=== PATIENT | female | born 1940 | race Hispanic/Latino ===

== ENCOUNTER 2018-02-16 18:23 | Inpatient (IN) | payer MEDICARE, OTHER ==
[2018-02-16 18:23] VITALS: BMI 25.7
[2018-02-16] MEDS ORDERED: Sodium Chloride 0.9% 500 ML IV ONE ×6 (19:35→22:42)
[2018-02-16 19:44] LABS: BASO # 0.1 K/uL (0.0-0.2); BASO % 0.4 % (0.0-2.0); EOS # 0.1 K/uL (0.0-0.7); EOS % 0.3 % (0.0-4.0); HEMOGLOBIN 9.7 g/dL (11.0-16.0); LYMPH # 1.6 K/uL (1.0-4.3); LYMPH % 7.6 % (20.0-40.0); MEAN CELL VOLUME 75.6 fL (81.0-99.0); MEAN CORPUSCULAR HEMOGLOBIN 22.8 pg (27.0-31.0); MEAN CORPUSCULAR HGB CONC 30.2 g/dL (33.0-37.0); MEAN PLATELET VOLUME 7.9 fL (7.2-11.7); MONO # 1.3 K/uL (0.0-0.8); MONO % 6.5 % (0.0-10.0); NEUT # 17.8 K/uL (1.8-7.0); NEUT % 85.2 % (50.0-75.0); PLATELET COUNT 658 K/uL (130-400); RBC 4.24 Mil/uL (3.80-5.20); RED CELL DISTRIBUTION WIDTH 21.3 % (11.5-14.5); WHITE BLOOD COUNT 20.8 K/uL (4.8-10.8)
[2018-02-16 19:55] LABS: INR 1.3; PROTHROMBIN TIME 13.8 SECONDS (9.7-12.2)
[2018-02-16 19:57] LABS: ALB/GLOB RATIO 0.9 (1.0-2.1); ALBUMIN 3.7 g/dL (3.5-5.0); ALT/SGPT 18 U/L (9-52); AST/SGOT 36 U/L (14-36); BLOOD UREA NITROGEN 11 mg/dL (7-17); CALCIUM 9.6 mg/dl (8.6-10.4); GFR NON-AFRICAN AMERICAN 54
[2018-02-16 20:05] LABS: CK-MB 5.05 ng/mL (0.0-3.38)
--- NOTE | 2018-02-16 21:00 | C.PDOC ---
History Of Present Illness Patient CRISTINA for evaluation, states she fell in her apartment 5 days ago when she got up from the toilet. Patient reports that her legs were very weak, and that she has been laying on the floor of her apartment, crawling around trying to get to the phone. She states she fell onto her left side, but denies head injury, LOC, palpitations, chest pain, SOB, dizziness, visual changes, facial droop, sensory changes, visual changes, seizures. PMhx of HTN, depression, seizure disorder Time Seen by Provider: 02/16/18 19:27 Chief Complaint (Nursing): Weakness/Neurological Deficit History Per: Patient, EMS History/Exam Limitations: no limitations Onset/Duration Of Symptoms: Days (5) Seizure Or Post-ictal Symptoms: None Fall Associated With With Symptoms: Yes Severity: Moderate Past Medical History Reviewed: Historical Data, Nursing Documentation, Vital Signs Vital Signs: Last Vital Signs Temp 98.1 F 02/16/18 19:07 Pulse 116 H 02/16/18 18:53 Resp 20 02/16/18 18:53 BP 163/82 H 02/16/18 18:53 Pulse Ox 100 02/16/18 18:53 - Medical History PMH: Depression, HTN, Seizures Surgical History: Cholecystectomy - [facility] Procedures INJECT/INFUSE ELECTROLYT (07/25/14) Family History: States: Other Other Family History: noncontributory - Social History Hx Alcohol Use: No Hx Substance Use: No Review Of Systems Constitutional: Positive for: Weakness (generalized ). Negative for: Fever, Chills Cardiovascular: Negative for: Chest Pain, Palpitations Respiratory: Negative for: Cough, Shortness of Breath Gastrointestinal: Negative for: Nausea, Vomiting, Abdominal Pain, Diarrhea Musculoskeletal: Negative for: Neck Pain, Back Pain, Leg Pain Skin: Negative for: Rash Neurological: Positive for: Weakness (B/L leg weakness). Negative for: Numbness, Incoordination, Confusion, Seizures, Altered Mental Status, Headache, Dizziness Physical Exam - Physical Exam Appears: Non-toxic, Other (thin and frail appearing) Skin: Other (scattered ecchymsoes B/L upper and loiwer extremities ) Head: Atraumatic, Normacephalic Eye(s): bilateral: Normal Inspection, PERRL, EOMI Oral Mucosa: Dry Neck: Normal, Normal ROM, No Midline Cervical Tenderness, No Paracervical Tenderness, No Step Off Deformity, Supple Cardiovascular: Rhythm Regular (tachycardic ) Respiratory: Normal Breath Sounds, No Rales, No Rhonchi, No Wheezing Gastrointestinal/Abdominal: Normal Exam, Bowel Sounds, Soft, No Tenderness Extremity: Normal ROM, No Deformity, No Swelling Extremity: Bilateral: Normal ROM, Other (B/L feet cool to touch but with pedal pulses) Pulses: Left Dorsalis Pedis: Normal, Right Dorsalis Pedis: Normal Neurological/Psych: Oriented x3, Normal Speech, Normal Cognition, Normal Cranial Nerves, No Cerebellar Signs, Normal Motor, Normal Sensation ED Course And Treatment - Laboratory Results Result Diagrams: 02/16/18 19:41 02/16/18 19:41 O2 Sat by Pulse Oximetry: 100 (RA) Pulse Ox Interpretation: Normal Progress Note: Blood work, EKG, CT head, UA, CXR and hip/pelvis Xrays ordered and reviewed. Patient given IV NS boluses, IV rocephin. 11:10PM- Spoke with PMD Dr. Don, he is currently out of town, requests admission to medicine transportation maintenance operator. - Physician Consult Information Physician Contacted: Ethan Galeas Jr. Outcome Of Conversation: Discussed patient with medicine transportation maintenance operator, agrees with admission for leukocytosis, uti, dehydration, fall, sinus tachycardia with PVCs. Disposition - Disposition Forms: [facility] Experience (Chinese)
[2018-02-16 21:33] LABS: LYMPHOCYTE 8 % (20-40); MONOCYTE 8 % (0-10); NEUTROPHIL 84 % (50-75); TOTAL CELLS COUNTED 100
[2018-02-16 21:34] LABS: PLATELET ESTIMATE INCREASED (NORMAL)
[2018-02-16 21:35] LABS: ANISOCYTOSIS SLIGHT; HYPOCHROMIC SLIGHT; MICROCYTOSIS SLIGHT; POIKILOCYTOSIS SLIGHT
[2018-02-16 21:47] LABS: SQUAMOUS EPITHIAL 8 /hpf (0-5); URINE BACTERIA OCC (<OCC); URINE BILIRUBIN NEGATIVE (NEGATIVE); URINE BLOOD 2+ (NEGATIVE); URINE CLARITY Hazy (Clear); URINE COLOR Yellow (YELLOW); URINE GLUCOSE (UA) NORMAL (Normal); URINE LEUKOCYTE ESTERASE 1+ Leu/uL (Negative); URINE PROTEIN 1+ mg/dL (NEGATIVE); URINE UROBILINOGEN NORMAL mg/dL (0.2-1.0)
[2018-02-16] MEDS ORDERED: cefTRIAXone IV 1 gm in Dextros 50 ML IV STA (22:02)
[2018-02-16] MEDS ORDERED: cefTRIAXone 1 gm 1 GM/100 ML BAG IVPB ONE (22:12)
[2018-02-17 00:06] LABS: ACETAMINOPHEN < 10.0 ug/mL (10.0-30.0); SALICYLATE < 1.0 [, mg/dL 1]
[2018-02-17 00:35] LABS: VENOUS BLOOD GAS BASE EXCESS -5.9 mmol/L (0.0-2.0); VENOUS BLOOD GAS PCO2 41 mmHg (40-60); VENOUS BLOOD GAS PO2 19 mm/Hg (30-55)
--- NOTE | 2018-02-17 00:52 | CP.PCM.HP ---
History of Present Illness - History of Present Illness History of Present Illness: cc: "I fell" Ms. Duron is a 78 year old female PMH hypertension, depression, seizure, hyperlipidemia presents to [facility] s/p fall 5 days ago. Per patient, her legs gave out and she fell to the floor on her left hip. She did not hit her head nor have loss of consciousness. However, she was unable to regain control of her legs. She spent the subsequent 5 days crawling on the floor to get to the phone and call 911. During that time, she did not eat. She was both incontinent and allowed herself to urinate since she was unable to get to a toilet. She denies having a BM during that time. Per EMS, her home was filthy, and the patient admits that she does not believe she can live alone any longer. Denies chest pain, abdominal pain, hip pain, shortness of breath, headache. Admits numbness and tingling at her feet. Patient states she has chronic back pain that has only worsened after the fall. She tells nursing staff that she takes Percocet, however is unable to remember how many times a day she takes it. PMD: Dr. Don PMH: HTN, depression, seizure, HLD Med: Simvastatin, unknown home meds All: Sulfa SxHx: Denies SocHx: 1/2 PPD smoker, 2-3 beers daily, denies ever illicit drugs. 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 Lives alone without hospice home health aide or any other visitors. Walks with cane. FamHx: Father - stroke, Mother - depression Full Code Present on Admission - Present on Admission Any Indicators Present on Admission: No Review of Systems - Constitutional Constitutional: Fatigue, Frequent Falls, Malaise, Weakness. absent: Excessive Sweating, Fever - EENT Eyes: absent: Blurred Vision, Diplopia Ears: absent: Tinnitus, Dizziness Nose/Mouth/Throat: absent: Nasal Discharge, Dysphagia, Odynophagia, Sore Throat - Cardiovascular Cardiovascular: absent: Chest Pain, Chest Pain with Activity, Dyspnea on Exertion, Irregular Heart Rhythm, Lightheadedness - Respiratory Respiratory: absent: Cough, Hemoptysis, Dyspnea on Exertion - Gastrointestinal Gastrointestinal: Constipation. absent: Bloating, Diarrhea, Dyspepsia, Heartburn, Nausea, Odynophagia, Vomiting - Genitourinary Genitourinary: Urinary Incontinence, Urinary Frequency. absent: Difficulty Urinating - Musculoskeletal Musculoskeletal: Back Pain, Muscle Weakness. absent: Myalgias, Numbness, Stiffness, Tingling - Integumentary Integumentary: Unusual Bruising, Wounds. absent: Bleeding Lesions, Dry Skin, Sores - Neurological Neurological: Frequent Falls, Lack of Coordination. absent: Abnormal Speech, Disequilibrium, Dizziness, Headaches, Syncope - Psychiatric Psychiatric: absent: Anxiety, Confusion, Depression, Hopelessness - Endocrine Endocrine: Fatigue. absent: Palpitations - Hematologic/Lymphatic Hematologic: Easy Bruising Past Patient History - Tetanus Immunizations Tetanus Immunization: Unknown - Past Social History Smoking Status: Heavy Smoker > 10 Cigarettes Daily Alcohol: > 2 Drinks/Day Drugs: Denies - CARDIAC Hx Hypertension: Yes - NEUROLOGICAL Hx Seizures: Yes - PSYCHIATRIC Hx Depression: Yes Hx Substance Use: No - SURGICAL HISTORY Hx Cholecystectomy: Yes Meds Allergies/Adverse Reactions: Allergies Allergy/AdvReac Type Severity Reaction Status Date / Time Sulfa (Sulfonamide Allergy Verified 02/16/18 18:36 Antibiotics) Physical Exam - Constitutional Appears: Non-toxic, No Acute Distress - Head Exam Head Exam: ATRAUMATIC, NORMOCEPHALIC - Eye Exam Eye Exam: EOMI, Normal appearance Pupil Exam: NORMAL ACCOMODATION - ENT Exam ENT Exam: Mucous Membranes Moist - Respiratory Exam Respiratory Exam: Clear to Auscultation Bilateral, NORMAL BREATHING PATTERN. absent: Rales, Rhonchi, Wheezes - Cardiovascular Exam Cardiovascular Exam: Irregular Rhythm, +S1, +S2. absent: Gallop, Rubs, Systolic Murmur Additional comments: irregularly irregular - GI/Abdominal Exam GI & Abdominal Exam: Normal Bowel Sounds, Soft. absent: Distended, Firm, Guarding, Tenderness - Exam Additional comments: incontinent - Extremities Exam Extremities exam: Positive for: normal capillary refill, pedal pulses present. Negative for: calf tenderness, pedal edema, tenderness - Back Exam Back exam: absent: CVA tenderness (L), CVA tenderness (R) - Neurological Exam Neurological exam: Alert, CN II-XII Intact, Oriented x3, Reflexes Normal - Psychiatric Exam Psychiatric exam: Normal Affect, Normal Mood - Skin Skin Exam: Normal Color, Warm Results - Vital Signs Recent Vital Signs: Last Vital Signs Temp 98.1 F 02/17/18 00:12 Pulse 110 H 02/17/18 00:12 Resp 18 02/17/18 00:12 BP 148/47 L 02/17/18 00:12 Pulse Ox 96 02/17/18 00:12 - Labs Result Diagrams: 02/16/18 19:41 02/16/18 19:41 Labs: Laboratory Results - last 24 hr 02/16/18 02/16/18 02/16/18 18:56 19:41 19:41 WBC 20.8 H RBC 4.24 Hgb 9.7 L Hct 32.0 L MCV 75.6 L MCH 22.8 L MCHC 30.2 L RDW 21.3 H Plt Count 658 H MPV 7.9 Neut % (Auto) 85.2 H Lymph % (Auto) 7.6 L [place] % (Auto) 6.5 Eos % (Auto) 0.3 Baso % (Auto) 0.4 Neut # (Auto) 17.8 H Lymph # (Auto) 1.6 [place] # (Auto) 1.3 H Eos # (Auto) 0.1 Baso # (Auto) 0.1 Neutrophils % (Manual) 84 H Lymphocytes % (Manual) 8 L Monocytes % (Manual) 8 Platelet Estimate Increased H Hypochromasia (manual) Slight Poikilocytosis (manual Slight Anisocytosis (manual) Slight Microcytosis (manual) Slight PT 13.8 H INR 1.3 APTT 37 H pO2 VBG pH VBG pCO2 VBG HCO3 VBG Total CO2 VBG O2 Sat (Calc) VBG Base Excess VBG Potassium Glucose Lactate Sodium Potassium Chloride Carbon Dioxide Anion Gap BUN Creatinine Est GFR ( Amer) Est GFR (Non-Af Amer) POC Glucose (mg/dL) 73 Random Glucose Calcium Total Bilirubin AST ALT Alkaline Phosphatase Total Creatine Kinase CK-MB (Mass) Total Protein Albumin Globulin Albumin/Globulin Ratio Venous Blood Potassium Urine Color Urine Clarity Urine pH Ur Specific Flushing Urine Protein Urine Glucose (UA) Urine Ketones Urine Blood Urine Nitrate Urine Bilirubin Urine Urobilinogen Ur Leukocyte Esterase Urine WBC (Auto) Urine RBC (Auto) Ur Squamous Epith Cells Urine Bacteria Hyaline Casts Salicylates Acetaminophen 02/16/18 02/16/18 02/16/18 19:41 21:36 23:52 WBC RBC Hgb Hct MCV MCH MCHC RDW Plt Count MPV Neut % (Auto) Lymph % (Auto) [place] % (Auto) Eos % (Auto) Baso % (Auto) Neut # (Auto) Lymph # (Auto) [place] # (Auto) Eos # (Auto) Baso # (Auto) Neutrophils % (Manual) Lymphocytes % (Manual) Monocytes % (Manual) Platelet Estimate Hypochromasia (manual) Poikilocytosis (manual Anisocytosis (manual) Microcytosis (manual) PT INR APTT pO2 VBG pH VBG pCO2 VBG HCO3 VBG Total CO2 VBG O2 Sat (Calc) VBG Base Excess VBG Potassium Glucose Lactate Sodium 142 Potassium 3.8 Chloride 100 Carbon Dioxide 21 L Anion Gap 25 H BUN 11 Creatinine 1.0 Est GFR ( Amer) > 60 Est GFR (Non-Af Amer) 54 POC Glucose (mg/dL) Random Glucose 113 H Calcium 9.6 Total Bilirubin 0.5 AST 36 ALT 18 Alkaline Phosphatase 112 Total Creatine Kinase 90 CK-MB (Mass) 5.05 H Total Protein 7.8 Albumin 3.7 Globulin 4.1 H Albumin/Globulin Ratio 0.9 L Venous Blood Potassium Urine Color Yellow Urine Clarity Hazy Urine pH 6.0 Ur Specific [place] 1.012 Urine Protein 1+ H Urine Glucose (UA) Normal Urine Ketones 2+ H Urine Blood 2+ H Urine Nitrate Positive H Urine Bilirubin Negative Urine Urobilinogen Normal Ur Leukocyte Esterase 1+ H Urine WBC (Auto) 29 H Urine RBC (Auto) 12 H Ur Squamous Epith Cells 8 H Urine Bacteria Occ H Hyaline Casts 6-10 H Salicylates < 1.0 Acetaminophen < 10.0 L 02/17/18 00:31 WBC RBC Hgb Hct MCV MCH MCHC RDW Plt Count MPV Neut % (Auto) Lymph % (Auto) [place] % (Auto) Eos % (Auto) Baso % (Auto) Neut # (Auto) Lymph # (Auto) [place] # (Auto) Eos # (Auto) Baso # (Auto) Neutrophils % (Manual) Lymphocytes % (Manual) Monocytes % (Manual) Platelet Estimate Hypochromasia (manual) Poikilocytosis (manual Anisocytosis (manual) Microcytosis (manual) PT INR APTT pO2 19 L VBG pH 7.30 L VBG pCO2 41 VBG HCO3 18.3 VBG Total CO2 21.5 L VBG O2 Sat (Calc) 19.0 L VBG Base Excess -5.9 L VBG Potassium 3.9 Glucose 82 Lactate 1.2 Sodium 141.0 Potassium Chloride 104.0 Carbon Dioxide Anion Gap BUN Creatinine Est GFR ( Amer) Est GFR (Non-Af Amer) POC Glucose (mg/dL) Random Glucose Calcium Total Bilirubin AST ALT Alkaline Phosphatase Total Creatine Kinase CK-MB (Mass) Total Protein Albumin Globulin Albumin/Globulin Ratio Venous Blood Potassium 3.9 Urine Color Urine Clarity Urine pH Ur Specific [place] Urine Protein Urine Glucose (UA) Urine Ketones Urine Blood Urine Nitrate Urine Bilirubin Urine Urobilinogen Ur Leukocyte Esterase Urine WBC (Auto) Urine RBC (Auto) Ur Squamous Epith Cells Urine Bacteria Hyaline Casts Salicylates Acetaminophen Assessment & Plan - Assessment and Plan (Free Text) Assessment: 79yo F PMH HTN, seixure, depression admitted s/p fall and UTI Plan: s/p Fall - CXR (02/16): pending read - XR Hip/Pelvis: pending read - CT Head w/o contrast (02/16): pending read - EKG x2 sinus tachy @120 with PVCs. - On exam, afib @ 120 with PVCs - PT/OT Leukocytosis - likely secondary UTI - WBC 20.8 on admission - VBG: pH 7.30, lactate 1.2 - Rocephin 1 gm IVPB daily (started in ED 02/16) - UA: 1+ protein, 2+ ketone, 2+ blood, positive nitrate, 1+ LE, 29 WBC, 6-10 hyaline casts - f/u urine Cx - f/u blood Cx Paroxyosmal Afib - 09/29/16 ECHO: LVEF 70%, mitral regurg - Patient is aSx - Monitor on tele Tobacco Use - Nicotine patch 7mg/24hr TD daily - patient is not interested in quitting at this time Multiple bruises/hematomas - PT/PTT elevated: 13.8/37, INR 1.3 - Wound Care consulted PPx - DVT: Lovenox 40mg sc daily, SCDs - GI: not indicated - Diet: HHD Dispo: CM and SW consulted for dispo. Patient will require home care. We will also need to call Dr. Don's office to confirm home medications. d/w Dr. Galeas. All medical management per Dr. Gudelia Menjivar PGY-1 - Date & Time Date: 02/17/18 Time: 00:30
--- NOTE | 2018-02-17 07:26 | CT ---
Date of service: 02/16/2018 PROCEDURE: CT HEAD WITHOUT CONTRAST. HISTORY: fall COMPARISON: None available. TECHNIQUE: Axial computed tomography images were obtained through the head/brain without intravenous contrast. Radiation dose: Total exam DLP = 1410.23 mGy-cm. This CT exam was performed using one or more of the following dose reduction techniques: Automated exposure control, adjustment of the mA and/or kV according to patient size, and/or use of iterative reconstruction technique. FINDINGS: HEMORRHAGE: No intracranial hemorrhage. BRAIN: No mass effect or edema. Scattered focal lucencies in the subcortical and periventricular white matter suggestive for chronic microvascular ischemic change. Bilateral basal ganglia lacunar infarcts. Punctate left caudate head lacunar infarct. VENTRICLES: Unremarkable. No hydrocephalus. CALVARIUM: Deformity of the left nasal bone PARANASAL SINUSES: Unremarkable as visualized. No significant inflammatory changes. MASTOID AIR CELLS: Unremarkable as visualized. No inflammatory changes. OTHER FINDINGS: None. IMPRESSION: Chronic microvascular ischemic changes. 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 Deformity of the left nasal bone. If symptoms persists, consider correlation with MRI. A preliminary report was generated at 9:42 p.m. on 02/16/[address] Jesus Manuel Pang from [facility].
--- NOTE | 2018-02-17 08:04 | RAD ---
Chest x-ray single frontal view HISTORY: Fall. Dehydration. Comparison: None available. FINDINGS: No focal infiltrate or effusion. Heart size within normal limits. Atherosclerotic calcification the aortic knob. Degenerative changes in the spine. IMPRESSION: No focal infiltrate or effusion.
[2018-02-17 08:36] LABS: BASO # 0.1 K/uL (0.0-0.2); EOS # 0.2 K/uL (0.0-0.7); MONO # 1.1 K/uL (0.0-0.8)
[2018-02-17 08:46] LABS: BASO % 0.8 % (0.0-2.0); EOS % 2.1 % (0.0-4.0); LYMPH # 1.9 K/uL (1.0-4.3); LYMPH % 18.9 % (20.0-40.0); MEAN CORPUSCULAR HEMOGLOBIN 23.3 pg (27.0-31.0); MEAN CORPUSCULAR HGB CONC 31.5 g/dL (33.0-37.0); MONO % 10.8 % (0.0-10.0); NEUT # 6.7 K/uL (1.8-7.0); NEUT % 67.4 % (50.0-75.0); RBC 3.24 Mil/uL (3.80-5.20); RED CELL DISTRIBUTION WIDTH 20.9 % (11.5-14.5)
[2018-02-17 08:51] LABS: WHITE BLOOD COUNT 9.9 K/uL (4.8-10.8)
[2018-02-17 08:52] LABS: HEMOGLOBIN 7.5 g/dL (11.0-16.0)
[2018-02-17 09:02] LABS: ALB/GLOB RATIO 0.9 (1.0-2.1); ALBUMIN 2.7 g/dL (3.5-5.0); ALT/SGPT 27 U/L (9-52); AST/SGOT 28 U/L (14-36); BLOOD UREA NITROGEN 12 mg/dL (7-17); CALCIUM 7.8 mg/dl (8.6-10.4); GFR NON-AFRICAN AMERICAN > 60
[2018-02-17] MEDS: Enoxaparin 40 mg Syringe SC SCH (10:48)
[2018-02-17] MEDS: cefTRIAXone IV 1 gm in Dextros 50 ML IVPB SCH (10:49)
--- NOTE | 2018-02-17 10:54 | CP.PCM.PN ---
Subjective - Date & Time of Evaluation Date of Evaluation: 02/17/18 Time of Evaluation: 10:54 - Subjective Subjective: PGY-1 Medicine progress note for Dr. Galeas Pt seen and examined at bedside. Pt is resting comfortably. She has no complaints at this time. Pt's hgb noted to be have decreased by more than2 in the past 12 hours. Pt denies fever, chills, headache, dizziness, lightheadedness, chest pain, sob, abdominal pain, n/v/d, dysuria, burning on u rination, hematochezia, melena, hemoptysis, or any new bleeding or bruising. Objective - Vital Signs/Intake and Output Vital Signs (last 24 hours): Temp Pulse Resp BP Pulse Ox 98.0 F 91 H 18 116/69 99 02/17/18 07:30 02/17/18 07:30 02/17/18 07:30 02/17/18 07:30 02/17/18 07:30 - Medications Medications: Current Medications Enoxaparin Sodium (Lovenox) 40 mg SC DAILY CIRILO Last Admin: 02/17/18 10:48 Dose: 40 mg Home Med (Simvastatin [Simvastatin]) 1 tab PO DAILY CIRILO Ceftriaxone Sodium (Rocephin Iv 1 Gm Duplex) 50 mls @ 100 mls/hr IVPB DAILY CIRILO; Protocol Last Admin: 02/17/18 10:49 Dose: 100 mls/hr Influenza Virus Vaccine (Fluzone Quad 1047-0065) 60 mcg IM .ONCE ONE Stop: 02/18/18 14:01 Nicotine (Nicoderm Cq) 1 patch TD DAILY CIRILO Last Admin: 02/17/18 10:48 Dose: 1 patch Pneumococcal Polyvalent Vaccine (Pneumovax 23 Vaccine) 0.5 ml IM .ONCE ONE Stop: 02/18/18 14:01 - Labs Labs: 02/17/18 08:33 02/17/18 08:33 PT 13.8 SECONDS (9.7-12.2) H 02/16/18 19:41 INR 1.3 02/16/18 19:41 APTT 37 SECONDS (21-34) H 02/16/18 19:41 - Constitutional Appears: Non-toxic, No Acute Distress - Head Exam Head Exam: ATRAUMATIC, NORMAL INSPECTION - Eye Exam Eye Exam: EOMI, PERRL - ENT Exam ENT Exam: Mucous Membranes Dry - Neck Exam Neck Exam: Full ROM - Respiratory Exam Respiratory Exam: Clear to Ausculation Bilateral. absent: Rhonchi, Wheezes, Respiratory Distress - Cardiovascular Exam Cardiovascular Exam: Tachycardia, +S1, +S2 Additional comments: (+) systolic ejection murmur 3/6, radiating to the carotid - GI/Abdominal Exam GI & Abdominal Exam: Soft, Normal Bowel Sounds. absent: Distended, Firm, Guarding, Rigid, Tenderness - Rectal Exam Rectal Exam: NORMAL INSPECTION. absent: Black Stool, Bloody Stool, Hemorrhoids, Fecal Impaction Additional comments: Mireya RN, as manufacturing manager. Well-tolerated, no pain. Brown solid stool placed on hemoccult test card. - Extremities Exam Extremities Exam: Normal Capillary Refill, Normal Inspection. absent: Calf Tenderness, Pedal Edema, Tenderness - Back Exam Back Exam: NORMAL INSPECTION, paraspinal tenderness (bilateral lumbar paravertebral tenderness; pt has this at baseline). absent: vertebral tenderness - Neurological Exam Neurological Exam: Alert, Awake, CN II-XII Intact, Oriented x3. absent: Motor Sensory Deficit Neuro motor strength exam: Left Upper Extremity: 5, Right Upper Extremity: 5, Left Lower Extremity: 5, Right Lower Extremity: 5 - Psychiatric Exam Psychiatric exam: Normal Affect, Normal Mood - Skin Skin Exam: Dry, Normal Color, Warm Assessment and Plan - Assessment and Plan (Free Text) Assessment: This is a 78 year old female with HTN, seizure, depression admitted s/p fall and UTI Plan: s/p Fall - CXR (02/16): no focal infiltrate or effusion (see full report) - XR Hip/Pelvis: Questionable nondisplaced fracture of left pubic symphysis. - CT Head w/o contrast (02/16): Chronic microvascular ischemic changes. 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 Deformity of the left nasal bone. -As per Dr. Don, pt has old CVA. Neuro examination is grossly normal i ncluding CN2-12. Pt remains asymptomatic. Antithrombotics not given secondary to pending anemia work up due to possible bleeding. Neurology consult has been cancelled. - EKG x2 sinus tachy @120 with PVCs. - PT/OT Microcytic anemia, possible GI bleed - Hgb 9.7, MCV on admission, decreased to 7.5 s/p 3L of fluids in the ED - CBC repeated, will follow up - f/u iron level, TIBC, iron sat %, folate, vitamin b12 - Hemoccult results pending, no gross bleeding noted on rectal exam - gastroenterology, Dr. Monaco, consulted who states that he will evaluate the pt today - Type and cross pt for 2 units pRBCs, will transfuse a total of 2 units today - pt is already on tele monitor Leukocytosis, resolved - currently 9.9 - likely secondary UTI - WBC 20.8 on admission - VBG: pH 7.30, lactate 1.2 - f/u blood Cx UTI - UA: 1+ protein, 2+ ketone, 2+ blood, positive nitrate, 1+ LE, 29 WBC, 6-10 hyaline casts - Continue Rocephin 1 gm IVPB daily (started in ED 02/16) - Prelim urine culture shows gram negative abigail growth - will f/u with final report Paroxyosmal Afib - 09/29/16 ECHO: LVEF 70%, MR - Patient is asymptomatic - Continue to monitor on tele Tobacco Use - Nicotine patch 7mg/24hr TD daily - patient is not interested in quitting at this time Multiple bruises/hematomas - PT/PTT elevated: 13.8/37, INR 1.3 - Wound Care consulted PPx - DVT: Lovenox 40mg SC daily (on hold due to drop in hgb), SCDs - GI: protonix 40 mg IVP q12 - Diet: HHD Dispo: CM and SW consulted for dispo. Pt is requesting assisted living, p referably [facility]. Dr. Don's office contacted. He will contact us with home medications. Case discussed with Dr. Galeas. All medical management as per Dr. Galeas. Niranjan Guerin, PGY-1
[2018-02-17] MEDS ORDERED: Potassium Chloride 20 mEq ER Tab PO ONE (12:30)
--- NOTE | 2018-02-17 12:35 | RAD ---
PROCEDURE: Radiographs of the pelvis and bilateral hips HISTORY: This COMPARISON: None. FINDINGS: BONES: Pelvis: Questionable nondisplaced fracture of left side of the pubic symphysis. There is cortical discontinuity along the medial border of the left pubic symphysis. No other pelvic fracture is identified. Right hip:Unremarkable. Left hip:Unremarkable. JOINTS: Right hip: Unremarkable. Left hip: Unremarkable. Sacroiliac Joints: Unremarkable. Pubic symphysis: Unremarkable. SOFT TISSUES: Normal. OTHER FINDINGS: None. IMPRESSION: Questionable nondisplaced fracture of left pubic symphysis. Consider further radiographic evaluation if clinically warranted, with computed tomography.
[2018-02-17 12:38] LABS: FOLATE 18.1 ng/mL
[2018-02-17 14:13] LABS: BASO % 0.4 % (0.0-2.0); EOS # 0.2 K/uL (0.0-0.7); EOS % 2.1 % (0.0-4.0); HEMOGLOBIN 7.3 g/dL (11.0-16.0); LYMPH # 1.7 K/uL (1.0-4.3); LYMPH % 15.6 % (20.0-40.0); MEAN CELL VOLUME 73.9 fL (81.0-99.0); MEAN CORPUSCULAR HEMOGLOBIN 23.7 pg (27.0-31.0); MEAN PLATELET VOLUME 7.6 fL (7.2-11.7); MONO % 9.7 % (0.0-10.0); NEUT # 7.8 K/uL (1.8-7.0); NEUT % 72.2 % (50.0-75.0); RBC 3.09 Mil/uL (3.80-5.20); RED CELL DISTRIBUTION WIDTH 21.5 % (11.5-14.5); WHITE BLOOD COUNT 10.8 K/uL (4.8-10.8)
[2018-02-17 14:39] LABS: LDL CHOLESTEROL 51 mg/dL (0-129)
[2018-02-17] MEDS ORDERED: Magnesium Oxide 400 mg Tab UD PO ONE ×2 (14:40→16:30)
[2018-02-17 14:45] LABS: ALB/GLOB RATIO 0.9 (1.0-2.1); ALBUMIN 2.8 g/dL (3.5-5.0); ALT/SGPT 22 U/L (9-52); AST/SGOT 28 U/L (14-36); BLOOD UREA NITROGEN 14 mg/dL (7-17); GFR NON-AFRICAN AMERICAN > 60; HDL CHOLESTEROL 41 mg/dL (30-70)
[2018-02-17 14:55] LABS: % IRON SATURATION < 4 (20-55); IRON < 10 ug/dL (37-170); TOTAL IRON BINDING CAPACITY 253 ug/dL (250-450)
[2018-02-17] MEDS: Rosuvastatin Calcium 2.5 mg Tab PO SCH (22:30)
--- NOTE | 2018-02-18 04:19 | CT ---
Date of service: 02/17/2018 PROCEDURE: CT Abdomen and Pelvis without intravenous contrast HISTORY: r/o retroperitneal/pelvic bleed COMPARISON: None. TECHNIQUE: Axial and reformatted coronal and sagittal CT images of the abdomen and pelvis were obtained without IV or oral contrast administration.. Contrast dose: 0 Radiation dose: Total exam DLP = 392.09 mGy-cm. This CT exam was performed using one or more of the following dose reduction techniques: Automated exposure control, adjustment of the mA and/or kV according to patient size, and/or use of iterative reconstruction technique. FINDINGS: LOWER THORAX: Small reticular opacities noted at the lung bases likely represent chronic lung changes. No evidence of pneumonia or pleural effusion. LIVER: Mild heterogeneous attenuation of the liver is noted without evidence of discrete mass. GALLBLADDER AND BILE DUCTS: Status post cholecystectomy. PANCREAS: Unremarkable. No gross lesion or ductal dilatation. SPLEEN: Unremarkable. ADRENALS: Unremarkable. No mass. KIDNEYS AND URETERS: Unremarkable. No hydronephrosis. No solid mass. VASCULATURE: Diffuse atherosclerotic calcification in the abdominal aorta and iliac arteries is noted. No aortic aneurysm. The IVC is small in size. BOWEL: There is ohpayo-ki-deyjtyumak dilated small bowel loops in the right lower abdomen contain mildly high attenuation fluid. Correlate clinically for possible GI bleed. These dilated loop cannot be from the right uterine fundus. Contains no obstruction. No gross mural thickening. No evidence of high-grade bowel obstruction. APPENDIX: Unremarkable. Normal appendix. PERITONEUM: No evidence of retroperitoneal hematoma. No free fluid. No free air. LYMPH NODES: Unremarkable. No enlarged lymph nodes. BLADDER: Unremarkable. REPRODUCTIVE: The uterus is slightly prominent in size. There is either pedunculated fibroid versus dilated bowel loops to the right and anterior aspect of uterine fundus noted. Further assessment by ultrasound of the pelvis is suggested. No evidence of left adnexal mass. BONES: No acute fracture. Heterogeneous attenuation of the osseous structures noted with possible osteoporosis. No definite evidence of destructive bony lesion. OTHER FINDINGS: None. IMPRESSION: No evidence of retroperitoneal hematoma. Either dilated small bowel loops contains high attenuation fluid versus less likely pedunculated fibroid noted at the right pelvis cannot be from the uterine and cannot be from the small bowel loops in the right lower abdomen. If clinically warranted further evaluation by ultrasound of the pelvis is suggested. The differential consideration includes upper GI bleed with hemorrhage in small bowel loops. Small size IVC. Correlate clinically for dehydration. Preliminary report was submitted by [facility] Radiology contains concordant findings.
[2018-02-18 08:26] LABS: BASO # 0.1 K/uL (0.0-0.2); BASO % 0.6 % (0.0-2.0); EOS # 0.3 K/uL (0.0-0.7); LYMPH % 17.5 % (20.0-40.0); MEAN CELL VOLUME 75.8 fL (81.0-99.0); MEAN CORPUSCULAR HEMOGLOBIN 24.9 pg (27.0-31.0); MEAN CORPUSCULAR HGB CONC 32.9 g/dL (33.0-37.0); MEAN PLATELET VOLUME 7.7 fL (7.2-11.7); MONO # 1.4 K/uL (0.0-0.8); MONO % 12.1 % (0.0-10.0); NEUT # 7.5 K/uL (1.8-7.0); NEUT % 66.8 % (50.0-75.0); RBC 4.63 Mil/uL (3.80-5.20); WHITE BLOOD COUNT 11.2 K/uL (4.8-10.8)
[2018-02-18 08:29] LABS: HEMOGLOBIN 11.5 g/dL (11.0-16.0)
[2018-02-18 08:47] LABS: ALB/GLOB RATIO 0.9 (1.0-2.1); ALBUMIN 2.9 g/dL (3.5-5.0); ALT/SGPT 20 U/L (9-52); AST/SGOT 30 U/L (14-36); BLOOD UREA NITROGEN 9 mg/dL (7-17); CALCIUM 8.2 mg/dl (8.6-10.4); GFR NON-AFRICAN AMERICAN > 60
[2018-02-18] MEDS: cefTRIAXone IV 1 gm in Dextros 50 ML IVPB SCH (11:06)
--- NOTE | 2018-02-18 12:25 | PN ---
DATE: <02/18/2018> LOCATION: 2, bed A. SUBJECTIVE: This 78-year-old female seen and examined initially for GI consultation on 02/17/2018, reexamined again today with intermittent period of abdominal pain, post blood transfusion with pelvic pain on and off, but no reported actual chest pain, palpitation, shortness of breath or reported active bleeding. The entire chart is reviewed including but not limited to the most recent lab and radiology study results, current and the previous medication list, current and the previous medical events and today's lab post transfusion is still pending. However, the patient reported to have low hemoglobin and the low hematocrit with low indices highly suggestive of hypochromic microcytic anemia with low potassium but increased blood glucose level with low calcium, low albumin and low magnesium with low phosphorus. I ordered CAT scan of the abdomen and pelvis which was done last night, official report is seen without evidence of retroperitoneal hematoma. The possibility of upper GI bleeding with hemorrhage in small lobe was considered. PHYSICAL EXAMINATION: GENERAL:: A 78-year-old female appeared to be awake, alert and oriented. VITAL SIGNS: Afebrile with pulse of 86, respiratory rate 20, 22, blood pressure of 150/68. HEENT: Showed pale dry oral mucous membrane. Nonicteric sclerae. LUNGS: Few scattered crepitation. Decreased air entry at bases. HEART: Positive S1 and S2 with increased rate. ABDOMEN: Soft with mild distention. Bowel sounds are hypoactive. No mass or organomegaly. No rebound tenderness or guarding. There is specifically suprapubic mild tenderness. EXTREMITIES: Without significant clubbing, cyanosis or edema. NEUROLOGIC: No reported new neurological deficits, sensory or motor. IMPRESSION: 1. Hypochromic microcytic anemia with subsequent drop of hemoglobin and hematocrit and abnormal CAT scan of the abdomen and pelvis. The possibility of upper gastrointestinal blood loss was raised strongly despite the stool is guaiac-negative so far. 2. Positive fall, fracture of the pelvic bone. 3. Known history of hypertension, depression, seizure disorder with status post cholecystectomy. 4. Electrolyte imbalance with hypokalemia, hypocalcemia. 5. Malnutrition with hypoproteinemia, hypoalbuminemia. SUGGESTIONS: 1. Agree with your plan. 2. Correct any underlying electrolyte imbalance. 3. The patient is for upper endoscopy at a.m. 4. Awaiting cancer markers. 5. Peripheral hyperalimentation. Further recommendation to follow. Darrell Gunter MD
[2018-02-18] MEDS ORDERED: Magnesium Oxide 400 mg Tab UD PO ONE ×2 (12:30→13:15)
[2018-02-18] MEDS ORDERED: Influenza Vaccine 60 MCG/0.5 ML SYR (3 yr & up) IM ONE (14:00)
[2018-02-18] MEDS ORDERED: Pneumococcal 23-Valent Vaccine IM ONE (14:00)
--- NOTE | 2018-02-18 15:39 | CARD ---
APPROVED REPORT Date of service: 02/16/2018 EKG Measurement Heart [id number] [id number] <Conclusion> Sinus tachycardia with premature ventricular complexes or fusion complexes Nonspecific ST abnormality Abnormal ECG
--- NOTE | 2018-02-18 15:39 | CARD ---
APPROVED REPORT Date of service: 02/16/2018 EKG Measurement Heart [id number] ID [id number] <Conclusion> Sinus tachycardia with short ID with premature atrial complexes or fusion complexes Otherwise normal ECG
[2018-02-18] MEDS ORDERED: Potassium Chloride 20 mEq ER Tab PO ONE ×2 (16:30→18:00)
[2018-02-18] MEDS: Potassium Phosphate 15 MMOLE in Sodium Chloride 0.9% 250 ML IVPB SCH (18:05)
--- NOTE | 2018-02-18 18:19 | CP.PCM.PN ---
Subjective - Date & Time of Evaluation Date of Evaluation: 02/18/18 Time of Evaluation: 11:00 - Subjective Subjective: PGY-1 Medicine Progress note for Dr. Galeas's service Patient seen and examined at bedside. Patient offers no acute complaints and reports almost no pain when ambulating. Patient is in process of getting accepte d to subactue rehab facility. Patient denies fevers, chills, chest pain, sob, n/v, constipation or diarrhea, and dysuria. Objective - Vital Signs/Intake and Output Vital Signs (last 24 hours): Temp Pulse Resp BP Pulse Ox 98.2 F 84 20 141/84 100 02/18/18 15:37 02/18/18 15:37 02/18/18 15:37 02/18/18 15:37 02/18/18 15:37 Intake and Output: 02/18/18 02/18/18 06:59 18:59 Intake Total 600 220 Balance 600 220 - Medications Medications: Current Medications Enoxaparin Sodium (Lovenox) 40 mg SC DAILY [facility] Last Admin: 02/17/18 10:48 Dose: 40 mg Ceftriaxone Sodium (Rocephin Iv 1 Gm Duplex) 50 mls @ 100 mls/hr IVPB DAILY [facility]; Protocol Last Admin: 02/18/18 11:06 Dose: 100 mls/hr Potassium Phosphate 15 mmole/ (Sodium Chloride) 255 mls @ 42.5 mls/hr IVPB Q6 [facility] Stop: 02/19/18 05:59 Last Admin: 02/18/18 18:05 Dose: 42.5 mls/hr Nicotine (Nicoderm Cq) 1 patch TD DAILY [facility] Last Admin: 02/18/18 11:06 Dose: 1 patch Pantoprazole Sodium (Protonix Inj) 40 mg IVP DAILY [facility] Last Admin: 02/18/18 11:05 Dose: 40 mg Rosuvastatin Calcium (Crestor) 2.5 mg PO HS [facility] Last Admin: 02/17/18 22:30 Dose: 2.5 mg - Labs Labs: 02/18/18 07:54 02/18/18 07:54 PT 13.8 SECONDS (9.7-12.2) H 02/16/18 19:41 INR 1.3 02/16/18 19:41 APTT 37 SECONDS (21-34) H 02/16/18 19:41 - Additional Findings Additional findings: - Constitutional Appears: Non-toxic, No Acute Distress - Head Exam Head Exam: ATRAUMATIC, NORMAL INSPECTION - Eye Exam Eye Exam: EOMI, PERRL - ENT Exam ENT Exam: Mucous Membranes Dry - Neck Exam Neck Exam: Full ROM - Respiratory Exam Respiratory Exam: Clear to Ausculation Bilateral. absent: Rhonchi, Wheezes, Respiratory Distress - Cardiovascular Exam Cardiovascular Exam: Regular Rhythm, +S1, +S2 - GI/Abdominal Exam GI & Abdominal Exam: Soft, Normal Bowel Sounds. absent: Distended, Firm, Guarding, Rigid, Tenderness - Extremities Exam Extremities Exam: Normal Capillary Refill, Normal Inspection. absent: Calf Tenderness, Pedal Edema, Tenderness - Back Exam Back Exam: NORMAL INSPECTION absent: vertebral tenderness - Neurological Exam Neurological Exam: Alert, Awake, CN II-XII Intact, Oriented x3. absent: Motor Sensory Deficit Neuro motor strength exam: Left Upper Extremity: 5, Right Upper Extremity: 5, Left Lower Extremity: 5, Right Lower Extremity: 5 - Psychiatric Exam Psychiatric exam: Normal Affect, Normal Mood - Skin Skin Exam: Dry, Normal Color, Warm Assessment and Plan - Assessment and Plan (Free Text) Assessment: This is a 78 year old female with HTN, seizure, depression admitted s/p fall and UTI Plan: Left Pubic Symphysis Fracture XR Hip/Pelvis: Questionable nondisplaced fracture of left pubic symphysis CT Head w/o contrast (02/16): Chronic microvascular ischemic changes. 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 Deformity of the left nasal bone. CT abd/pevlis- no evidence of retroperitoneal hematoma, no acute fracture on CT, possible upper GI bleed with hemorrhage in small bowel loops Microcytic anemia, possible GI bleed Hgb 11.1 Hemodynamically stable after blood transfusion CEA 6.4; Endoscopy with GI in AM; NPO at midnight UTI Ceftriaxone 1gm IVPB Afebrile, mild leukocytosis U cx positive for E coli Electrolyte abnormalities Mag ox 400mg po bid once Potassium Phosphate 2 bags 15 mmole Repeat CMP in AM Tobacco Use Disorder Nicotine patch 7mg/24hr TD daily Educated patient on benefits of cessation PPx DVT: Lovenox 40mg SC daily (on hold due to drop in hgb, consider restarting with stable Hgb pending Endoscopy reports), SCDs GI: protonix 40 mg IVP q12
[2018-02-18] MEDS: Rosuvastatin Calcium 2.5 mg Tab PO SCH (21:42)
[2018-02-19] MEDS: Potassium Phosphate 15 MMOLE in Sodium Chloride 0.9% 250 ML IVPB SCH ×2 (02:32→02:35)
[2018-02-19 07:51] LABS: BASO # 0.2 K/uL (0.0-0.2); BASO % 1.6 % (0.0-2.0); EOS # 0.4 K/uL (0.0-0.7); EOS % 3.7 % (0.0-4.0); HEMOGLOBIN 11.2 g/dL (11.0-16.0); LYMPH # 1.5 K/uL (1.0-4.3); LYMPH % 14.7 % (20.0-40.0); MEAN CELL VOLUME 76.7 fL (81.0-99.0); MEAN CORPUSCULAR HEMOGLOBIN 25.6 pg (27.0-31.0); MEAN CORPUSCULAR HGB CONC 33.4 g/dL (33.0-37.0); MEAN PLATELET VOLUME 7.6 fL (7.2-11.7); RBC 4.39 Mil/uL (3.80-5.20); RED CELL DISTRIBUTION WIDTH 20.8 % (11.5-14.5)
[2018-02-19 08:13] LABS: ALB/GLOB RATIO 0.8 (1.0-2.1); ALBUMIN 2.8 g/dL (3.5-5.0); ALT/SGPT 18 U/L (9-52); AST/SGOT 24 U/L (14-36); BLOOD UREA NITROGEN 6 mg/dL (7-17); CALCIUM 7.9 mg/dl (8.6-10.4); GFR NON-AFRICAN AMERICAN > 60
[2018-02-19] MEDS ORDERED: Lactated Ringer's 1,000 ML IV ONE (10:05)
[2018-02-19] MEDS ORDERED: Midazolam 2 MG/2 ML VIAL ONE (10:13)
[2018-02-19] MEDS ORDERED: Lidocaine Hydrochloride 5 ML INJ ONE (10:13)
[2018-02-19] MEDS ORDERED: Propofol 10 mg/ml Inj (20 ML) ONE (10:13)
[2018-02-19] MEDS: cefTRIAXone IV 1 gm in Dextros 50 ML IVPB SCH (10:21)
[2018-02-19] MEDS: Magnesium Sulfate 1 gm in D5W 1 GM/100 ML BAG IVPB SCH ×2 (10:21→11:26)
--- NOTE | 2018-02-19 11:35 | CP.PCM.PN ---
Subjective - Date & Time of Evaluation Date of Evaluation: 02/19/18 Time of Evaluation: 12:00 - Subjective Subjective: PGY-1 Medicine Progress note for Dr. Galeas Patient seen and examined at bedside. Patient is resting comfortably s/p EGD. She endorses frequent urination, but witout pain. She reports that she has been ambulating well with PT. Patient being managed by SW for [facility] placement. Patient denies back pain, leg pain, groin pain, numbness or tingling, fevers, chills, chest pain, sob, n/v, abdominal pain, new bruising or bleeding, hematochezia, dysuria, hematuria. Objective - Vital Signs/Intake and Output Vital Signs (last 24 hours): Temp Pulse Resp BP Pulse Ox 98.0 F 86 16 139/61 97 02/19/18 10:26 02/19/18 11:11 02/19/18 11:11 02/19/18 11:11 02/19/18 11:11 Intake and Output: 02/19/18 02/19/18 06:59 18:59 Output Total 400 Balance -400 - Medications Medications: Current Medications Enoxaparin Sodium (Lovenox) 40 mg SC DAILY [facility] Last Admin: 02/17/18 10:48 Dose: 40 mg Ceftriaxone Sodium (Rocephin Iv 1 Gm Duplex) 50 mls @ 100 mls/hr IVPB DAILY [facility]; Protocol Last Admin: 02/19/18 10:21 Dose: Not Given Magnesium Sulfate/Dextrose (Magnesium Sulfate 1 Gm/100 Ml D5w) 1 gm in 100 mls @ 50 mls/hr IVPB Q2H [facility] Stop: 02/19/18 13:59 Last Admin: 02/19/18 11:26 Dose: 50 mls/hr Potassium Chloride (Potassium Chloride 20 Meq/100 Ml) 20 meq in 100 mls @ 50 mls/hr IVPB ONCE ONE Stop: 02/19/18 13:10 Nicotine (Nicoderm Cq) 1 patch TD DAILY [facility] Last Admin: 02/19/18 10:21 Dose: Not Given Pantoprazole Sodium (Protonix Inj) 40 mg IVP DAILY [facility] Last Admin: 02/19/18 10:21 Dose: Not Given Rosuvastatin Calcium (Crestor) 2.5 mg PO HS [facility] Last Admin: 02/18/18 21:42 Dose: 2.5 mg Sucralfate (Carafate Tab) 1 gm PO ACBHS [facility] - Labs Labs: 02/19/18 07:38 02/19/18 07:38 PT 13.8 SECONDS (9.7-12.2) H 02/16/18 19:41 INR 1.3 02/16/18 19:41 APTT 37 SECONDS (21-34) H 02/16/18 19:41 - Additional Findings Additional findings: - Constitutional Appears: Non-toxic, No Acute Distress - Head Exam Head Exam: ATRAUMATIC, NORMAL INSPECTION - Eye Exam Eye Exam: EOMI, PERRL - ENT Exam ENT Exam: Mucous Membranes Dry - Neck Exam Neck Exam: Full ROM - Respiratory Exam Respiratory Exam: Clear to Ausculation Bilateral. absent: Rhonchi, Wheezes, Respiratory Distress - Cardiovascular Exam Cardiovascular Exam: Regular Rhythm, +S1, +S2 - GI/Abdominal Exam GI & Abdominal Exam: Soft, Normal Bowel Sounds. (+) abdomen slightly distended absent: Firm, Guarding, Rigid, Tenderness in abdomen or suprapubic region - Extremities Exam Extremities Exam: Normal Capillary Refill, Normal Inspection. absent: Calf Tenderness, Pedal Edema, Tenderness - Back Exam Back Exam: NORMAL INSPECTION absent: vertebral tenderness - Neurological Exam Neurological Exam: Alert, Awake, CN II-XII Intact, Oriented x3. absent: Motor Sensory Deficit Neuro motor strength exam: Left Upper Extremity: 5, Right Upper Extremity: 5, Left Lower Extremity: 5, Right Lower Extremity: 5 - Psychiatric Exam Psychiatric exam: Normal Affect, Normal Mood - Skin Skin Exam: Dry, Normal Color, Warm. (+) scattered healing ecchymosis of the right and left upper extremities, nontender. Assessment and Plan - Assessment and Plan (Free Text) Assessment: This is a 78 year old female with HTN, seizure, depression admitted s/ p fall and UTI Plan: Left Pubic Symphysis Fracture XR Hip/Pelvis: Questionable nondisplaced fracture of left pubic symphysis Pt is currently ambulating well with PT Ortho, Dr. Martinez, consulted - no treatment indicated if this is true fracture. orthopedically stable, no further imaging warranted at this time, patient is not complaining of CT Head w/o contrast (02/16): Chronic microvascular ischemic changes. 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 Deformity of the left nasal bone. As per Dr. Don, pt has old CVA. Neuro examination is grossly normal including CN2-12. Pt remains asymptomatic. Antithrombotics not given secondary to pending anemia work up due to possible bleeding. Neurology consult was cancelled. CT abd/pelv- no evidence of retroperitoneal hematoma, no acute fracture on CT, possible upper GI bleed with hemorrhage in small bowel loops Microcytic anemia, possible GI bleed Hgb 11.2 Hemodynamically stable after transfusion of 2 units of pRBCs FOBT is negative GI, Dr. Monaco, consulted for potential GI bleed -EGD (02/19) shows small hiatal hernia. Non=bleeding gastric ulcer with no stigmata of bleeding. Biopsied. Gastritis, erythematous duodenopathy. -recommends FLD, continue current medications with repeat EGD in 10 weeks, office visit in 5 weeks and PMD outpatient follow up. Carafate 1g PO QID for 8 weeks. CEA 6.4 UTI Afebrile, no leukocytosis, no tachycardia U cx positive for E coli sensitive to ceftriaxone Blood culture prelim negative for the past 48 hours Ceftriaxone discontinue Started on Cipro 250 mg PO BID Electrolyte abnormalities Hypokalemia repleted and currently 4.8 Magnesium is 1.2 -replete with Mag sulfate 2g IVP Hyperphosphatemia of 4.9 likely due to repletion of potassium phos yesterday -pt does not exhibit clinical signs of hyperphosphatemia Will continue to monitor with daily CMP Tobacco Use Disorder Nicotine patch 7mg/24hr TD daily Educated patient on benefits of cessation PPX: DVT: Lovenox 40mg SC daily (on hold due to drop in hgb, consider restarting with stable Hgb pending Endoscopy reports), SCDs GI: protonix 40 mg IVP q12 Continue PT/OT Dispo: CM and SW consulted for dispo. Pt is requesting assisted living, preferably [facility]. Case discussed with Dr. Galeas. All medical management as per Dr. Gudelia Guerin PGY-1
--- NOTE | 2018-02-19 13:11 | CP.PCM.CON ---
History of Present Illness - History of Present Illness History of Present Illness: Orthopedic consultation Dr. Martinez 78F complains of weakness and fall onto left side 5 days prior to admission. She said she was crawling around at that time. Currently, she denies any pain. She says that she had chronic back pain, but no pain in her back currently. She denies groin pain, back pain, leg pain. Denies pain in arms or neck. Denies numbness tinging. Denies CP/SOB at current time. Denies n/v/fever/chills Review of Systems - Review of Systems All systems: reviewed and no additional remarkable complaints except - Neurological Neurological: Frequent Falls Past Patient History - Tetanus Immunizations Tetanus Immunization: Unknown - Past Medical History & Family History Past Medical History?: Yes Past Family History: Reviewed and not pertinent - Past Social History Smoking Status: Heavy Smoker > 10 Cigarettes Daily Alcohol: > 2 Drinks/Day Drugs: Denies - CARDIAC Hx Hypertension: Yes - PULMONARY Hx Respiratory Disorders: No - NEUROLOGICAL Hx Seizures: Yes - HEENT Hx HEENT Problems: No - RENAL Hx Chronic Kidney Disease: No - ENDOCRINE/METABOLIC Hx Endocrine Disorders: No - HEMATOLOGICAL/ONCOLOGICAL Hx Blood Disorders: No - MUSCULOSKELETAL/RHEUMATOLOGICAL Hx Falls: Yes Hx Osteomyelitis: Yes - GASTROINTESTINAL Hx Gastrointestinal Disorders: No - GENITOURINARY/GYNECOLOGICAL Hx Genitourinary Disorders: Yes Hx Incontinence: Yes - PSYCHIATRIC Hx Depression: Yes Hx Substance Use: No - SURGICAL HISTORY Hx Cholecystectomy: Yes - ANESTHESIA Hx Anesthesia: Yes Hx Anesthesia Reactions: No Hx Malignant Hyperthermia: No Has any member of the family had a problem w/ anesthesia?: No Meds Allergies/Adverse Reactions: Allergies Allergy/AdvReac Type Severity Reaction Status Date / Time Sulfa (Sulfonamide Allergy Verified 02/16/18 18:36 Antibiotics) - Medications Medications: Current Medications Enoxaparin Sodium (Lovenox) 40 mg SC DAILY [facility] Last Admin: 02/17/18 10:48 Dose: 40 mg Ceftriaxone Sodium (Rocephin Iv 1 Gm Duplex) 50 mls @ 100 mls/hr IVPB DAILY [facility]; Protocol Last Admin: 02/19/18 10:21 Dose: Not Given Magnesium Sulfate/Dextrose (Magnesium Sulfate 1 Gm/100 Ml D5w) 1 gm in 100 mls @ 50 mls/hr IVPB Q2H [facility] Stop: 02/19/18 13:59 Last Admin: 02/19/18 11:26 Dose: 50 mls/hr Potassium Chloride (Potassium Chloride 20 Meq/100 Ml) 20 meq in 100 mls @ 50 mls/hr IVPB ONCE ONE Stop: 02/19/18 13:10 Nicotine (Nicoderm Cq) 1 patch TD DAILY [facility] Last Admin: 02/19/18 10:21 Dose: Not Given Pantoprazole Sodium (Protonix Inj) 40 mg IVP DAILY [facility] Last Admin: 02/19/18 10:21 Dose: Not Given Rosuvastatin Calcium (Crestor) 2.5 mg PO HS [facility] Last Admin: 02/18/18 21:42 Dose: 2.5 mg Sucralfate (Carafate Tab) 1 gm PO ACBHS [facility] Physical Exam - Constitutional Appears: Unkempt Additional comments: bed covered in urine. Patient does not complain about this, noted on exam - Head Exam Head Exam: ATRAUMATIC - Neck Exam Neck exam: Positive for: Full Rom, Normal Inspection - Respiratory Exam Respiratory Exam: NORMAL BREATHING PATTERN - Cardiovascular Exam Additional comments: +DP/PT pulses - Expanded Lower Extremities Exam Left Hip exam: full ROM, normal inspection (no shortening, no pelvic instability) Knee exam: full ROM, normal inspection Ankle exam: FULL ROM, NORMAL INSPECTION Neuro vacular tendon exam: no vascular compromise (calves soft NT neg homans, no pain with passive ROM b hips, compression/distraction, mild tenderness to left side of pubis) - Back Exam Additional comments: non tender to back, no swelling/deformity/discoloration - Neurological Exam Neurological exam: Alert, Oriented x3 - Psychiatric Exam Psychiatric exam: Normal Affect, Normal Mood - Skin Skin Exam: Dry, Intact, Normal Color, Warm Results - Vital Signs Recent Vital Signs: Last Vital Signs Temp 98.0 F 02/19/18 10:26 Pulse 86 02/19/18 11:11 Resp 16 02/19/18 11:11 BP 139/61 02/19/18 11:11 Pulse Ox 97 02/19/18 11:11 - Labs Result Diagrams: 02/19/18 07:38 02/19/18 07:38 Labs: Laboratory Results - last 24 hr 02/19/18 02/19/18 07:38 07:38 WBC 10.0 RBC 4.39 Hgb 11.2 Hct 33.7 L MCV 76.7 L MCH 25.6 L MCHC 33.4 RDW 20.8 H Plt Count 424 H MPV 7.6 Neut % (Auto) 70.0 Lymph % (Auto) 14.7 L [place] % (Auto) 10.0 Eos % (Auto) 3.7 Baso % (Auto) 1.6 Neut # (Auto) 7.0 Lymph # (Auto) 1.5 [place] # (Auto) 1.0 H Eos # (Auto) 0.4 Baso # (Auto) 0.2 Sodium 138 Potassium 4.8 Chloride 103 Carbon Dioxide 26 Anion Gap 14 BUN 6 L Creatinine 0.7 Est GFR ( Amer) > 60 Est GFR (Non-Af Amer) > 60 Random Glucose 94 Calcium 7.9 L Phosphorus 4.9 H Magnesium 1.2 L Total Bilirubin 0.3 AST 24 ALT 18 Alkaline Phosphatase 64 Total Protein 6.3 Albumin 2.8 L Globulin 3.5 Albumin/Globulin Ratio 0.8 L - Impressions Impression: Patient Name / ID : VINNY VAZQUEZ / [id number] Exam Date : 02/17/2018 19:17:40 ( Approved ) Study Comment : Sex / Age : F / 78Y Creator : Verónica Guzman MD Dictator : Verónica Guzman MD Sorter/Assay Tech : Surgical Services Manager : Verónica Guzman MD Approver2 : Report Date : 02/18/2018 04:16:02 My Comment : Date of service: 02/17/2018 PROCEDURE: CT Abdomen and Pelvis without intravenous contrast HISTORY: r/o retroperitneal/pelvic bleed COMPARISON: None. TECHNIQUE: Axial and reformatted coronal and sagittal CT images of the abdomen and pelvis were obtained without IV or oral contrast administration.. Contrast dose: 0 Radiation dose: Total exam DLP = 392.09 mGy-cm. This CT exam was performed using one or more of the following dose reduction techniques: Automated exposure control, adjustment of the mA and/or kV according to patient size, and/or use of iterative reconstruction technique. FINDINGS: LOWER THORAX: Small reticular opacities noted at the lung bases likely represent chronic lung changes. No evidence of pneumonia or pleural effusion. LIVER: Mild heterogeneous attenuation of the liver is noted without evidence of discrete mass. GALLBLADDER AND BILE DUCTS: Status post cholecystectomy. PANCREAS: Unremarkable. No gross lesion or ductal dilatation. SPLEEN: Unremarkable. ADRENALS: Unremarkable. No mass. KIDNEYS AND URETERS: Unremarkable. No hydronephrosis. No solid mass. VASCULATURE: Diffuse atherosclerotic calcification in the abdominal aorta and iliac arteries is noted. No aortic aneurysm. The IVC is small in size. BOWEL: There is sctszu-[id number] dilated small bowel loops in the right lower abdomen contain mildly high attenuation fluid. Correlate clinically for possible GI bleed. These dilated loop cannot be from the right uterine fundus. Contains no obstruction. No gross mural thickening. No evidence of high-grade bowel obstruction. APPENDIX: Unremarkable. Normal appendix. PERITONEUM: No evidence of retroperitoneal hematoma. No free fluid. No free air. LYMPH NODES: Unremarkable. No enlarged lymph nodes. BLADDER: Unremarkable. REPRODUCTIVE: The uterus is slightly prominent in size. There is either pedunculated fibroid versus dilated bowel loops to the right and anterior aspect of uterine fundus noted. Further assessment by ultrasound of the pelvis is suggested. No evidence of left adnexal mass. BONES: No acute fracture. Heterogeneous attenuation of the osseous structures noted with possible osteoporosis. No definite evidence of destructive bony lesion. OTHER FINDINGS: None. IMPRESSION: No evidence of retroperitoneal hematoma. Either dilated small bowel loops contains high attenuation fluid versus less l ikely pedunculated fibroid noted at the right pelvis cannot be from the uterine and cannot be from the small bowel loops in the right lower abdomen. If clinically warranted further evaluation by ultrasound of the pelvis is suggested. The differential consideration includes upper GI bleed with hemorrhage in small bowel loops. Small size IVC. Correlate clinically for dehydration. Preliminary report was submitted by [facility] contains concordant findings. Patient Name / ID : VINNY VAZQUEZ / [id number] Exam Date : 02/16/2018 19:58:44 ( Approved ) Study Comment : Sex / Age : F / 78Y Creator : Cayden Guerrier MD Dictator : Cayden Guerrier MD Sorter/Assay Tech : Surgical Services Manager : Cayden Guerrier MD Approver2 : Report Date : 02/17/2018 12:31:40 My Comment : PROCEDURE: Radiographs of the pelvis and bilateral hips HISTORY: This COMPARISON: None. FINDINGS: BONES: Pelvis: Questionable nondisplaced fracture of left side of the pubic symphysis. There is cortical discontinuity along the medial border of the left pubic symphysis. No other pelvic fracture is identified. Right hip:Unremarkable. Left hip:Unremarkable. JOINTS: Right hip: Unremarkable. Left hip: Unremarkable. Sacroiliac Joints: Unremarkable. Pubic symphysis: Unremarkable. SOFT TISSUES: Normal. OTHER FINDINGS: None. IMPRESSION: Questionable nondisplaced fracture of left pubic symphysis. Consider further radiographic evaluation if clinically warranted, with computed tomography. Assessment & Plan (1) Fracture of left pubis Assessment and Plan: ? fracture, not clearly evident on CT scan, but since patient is tender at this point, will treat accordingly non displaced, non operative, no treatment indicated if this is true fracture treatment is progressive mobility, will start WBAT LLE VTE proph SCDs orthopedically stable, no further imaging warranted at this time, patient is not complaining of any pain, will follow for PT progess d/w Dr. Martinez, agrees with above Status: Acute
[2018-02-19] MEDS: Rosuvastatin Calcium 2.5 mg Tab PO SCH (22:55)
--- NOTE | 2018-02-20 01:15 | CP.PCM.PN ---
Subjective - Date & Time of Evaluation Date of Evaluation: 02/20/18 Time of Evaluation: 01:04 - Subjective Subjective: PGY-1 Medicine Progress Note for Dr. Galeas's service Patient seen and examined at bedside. Patient offers no acute complaints. Patient denies fevers, chills, chest pain, sob, n/v, constipation or diarrhea, and dysuria. Objective - Vital Signs/Intake and Output Vital Signs (last 24 hours): Temp Pulse Resp BP Pulse Ox 98.7 F 102 H 20 154/79 H 100 02/19/18 15:00 02/19/18 15:00 02/19/18 15:00 02/19/18 15:00 02/19/18 15:00 Intake and Output: 02/19/18 02/20/18 18:59 06:59 Intake Total 600 Output Total 550 Balance 600 -550 - Medications Medications: Current Medications Ciprofloxacin (Cipro) 250 mg PO BID [facility]; Protocol Last Admin: 02/19/18 18:59 Dose: 250 mg Enoxaparin Sodium (Lovenox) 40 mg SC DAILY [facility] Last Admin: 02/17/18 10:48 Dose: 40 mg Nicotine (Nicoderm Cq) 1 patch TD DAILY [facility] Last Admin: 02/19/18 10:21 Dose: Not Given Pantoprazole Sodium (Protonix Inj) 40 mg IVP DAILY [facility] Last Admin: 02/19/18 10:21 Dose: Not Given Rosuvastatin Calcium (Crestor) 2.5 mg PO HS [facility] Last Admin: 02/19/18 22:55 Dose: 2.5 mg Sucralfate (Carafate Tab) 1 gm PO ACBHS [facility] Last Admin: 02/19/18 22:55 Dose: 1 gm - Labs Labs: 02/19/18 07:38 02/19/18 07:38 PT 13.8 SECONDS (9.7-12.2) H 02/16/18 19:41 INR 1.3 02/16/18 19:41 APTT 37 SECONDS (21-34) H 02/16/18 19:41 - Additional Findings Additional findings: - Constitutional Appears: Non-toxic, No Acute Distress - Head Exam Head Exam: ATRAUMATIC, NORMAL INSPECTION - Eye Exam Eye Exam: EOMI, PERRL - ENT Exam ENT Exam: Mucous Membranes Dry - Neck Exam Neck Exam: Full ROM - Respiratory Exam Respiratory Exam: Clear to Ausculation Bilateral. absent: Rhonchi, Wheezes, Respiratory Distress - Cardiovascular Exam Cardiovascular Exam: Regular Rhythm, +S1, +S2 - GI/Abdominal Exam GI & Abdominal Exam: Soft, Normal Bowel Sounds. (+) abdomen slightly distended absent: Firm, Guarding, Rigid, Tenderness in abdomen or suprapubic region - Extremities Exam Extremities Exam: Normal Capillary Refill, Normal Inspection. absent: Calf Tenderness, Pedal Edema, Tenderness - Back Exam Back Exam: NORMAL INSPECTION absent: vertebral tenderness - Neurological Exam Neurological Exam: Alert, Awake, CN II-XII Intact, Oriented x3. absent: Motor Sensory Deficit Neuro motor strength exam: Left Upper Extremity: 5, Right Upper Extremity: 5, Left Lower Extremity: 5, Right Lower Extremity: 5 - Psychiatric Exam Psychiatric exam: Normal Affect, Normal Mood - Skin Skin Exam: Dry, Normal Color, Warm. (+) scattered healing ecchymosis of the right and left upper extremities, nontender. Assessment and Plan - Assessment and Plan (Free Text) Assessment: This is a 78 year old female with HTN, seizure, depression admitted s/p fall and UTI Plan: Left Pubic Symphysis Fracture Ortho Consult: Dr. odell- no acute surgical intervention; continue PT XR Hip/Pelvis: Questionable nondisplaced fracture of left pubic symphysis CT Head w/o contrast (02/16): Chronic microvascular ischemic changes. 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 Deformity of the left nasal bone. CT abd/pevlis- no evidence of retroperitoneal hematoma, no acute fracture on CT, possible upper GI bleed with hemorrhage in small bowel loops Microcytic anemia, possible GI bleed GI consulted: Dr. Monaco- EGD rec- shows hiatal hernia, gastritis, and non bleeding gastric ulcer Hgb 11.1 Hemodynamically stable after blood transfusion CEA 6.4; Path results pending; full liquid diet, sucralfate tablets 1gm po qid for 8 weeks UTI Ciprofloxacin 250mg po bid [place] Afebrile, mild leukocytosis U cx positive for E coli CAD Crestor 2.5mg po hs [place] Tobacco Use Disorder Nicotine patch 7mg/24hr TD daily Educated patient on benefits of cessation PPx DVT: Lovenox 40mg SC daily (consider restarting in setting of EGD shows no acute bleed), SCDs GI: protonix 40 mg IVP q12
[2018-02-20 08:50] LABS: BASO # 0.1 K/uL (0.0-0.2); BASO % 1.1 % (0.0-2.0); EOS # 0.4 K/uL (0.0-0.7); LYMPH # 1.8 K/uL (1.0-4.3); LYMPH % 19.7 % (20.0-40.0); MEAN CELL VOLUME 76.7 fL (81.0-99.0); MEAN CORPUSCULAR HEMOGLOBIN 25.6 pg (27.0-31.0); MEAN CORPUSCULAR HGB CONC 33.3 g/dL (33.0-37.0); MONO % 11.5 % (0.0-10.0); NEUT # 5.8 K/uL (1.8-7.0); NEUT % 63.7 % (50.0-75.0); NRBC % 0.1 % (0.0-2.0); RBC 4.68 Mil/uL (3.80-5.20); RED CELL DISTRIBUTION WIDTH 21.8 % (11.5-14.5); WHITE BLOOD COUNT 9.1 K/uL (4.8-10.8)
[2018-02-20 09:08] LABS: ALB/GLOB RATIO 0.9 (1.0-2.1); ALT/SGPT 15 U/L (9-52); AST/SGOT 28 U/L (14-36); BLOOD UREA NITROGEN 4 mg/dL (7-17); CALCIUM 8.5 mg/dl (8.6-10.4); GFR NON-AFRICAN AMERICAN > 60
[2018-02-20] MEDS: Rosuvastatin Calcium 2.5 mg Tab PO SCH (21:56)
--- NOTE | 2018-02-21 03:03 | CP.PCM.PN ---
Subjective - Date & Time of Evaluation Date of Evaluation: 02/21/18 Time of Evaluation: 03:01 - Subjective Subjective: PGY-1 Medicine Progress note for Dr. Galeas's service Patient seen and examined at bedside. Patient offers no acute complaints and denies fevers, chills, chest pain, sob, n/v, constipation or diarrhea, dysuria. Objective - Vital Signs/Intake and Output Vital Signs (last 24 hours): Temp Pulse Resp BP Pulse Ox 98.2 F 85 20 111/66 97 02/20/18 16:00 02/20/18 23:30 02/20/18 16:00 02/20/18 16:00 02/20/18 16:00 - Medications Medications: Current Medications Ciprofloxacin (Cipro) 250 mg PO BID [facility]; Protocol Last Admin: 02/20/18 18:55 Dose: 250 mg Enoxaparin Sodium (Lovenox) 40 mg SC DAILY [facility] Last Admin: 02/17/18 10:48 Dose: 40 mg Nicotine (Nicoderm Cq) 1 patch TD DAILY [facility] Last Admin: 02/20/18 10:07 Dose: 1 patch Pantoprazole Sodium (Protonix Inj) 40 mg IVP DAILY [facility] Last Admin: 02/20/18 10:07 Dose: 40 mg Rosuvastatin Calcium (Crestor) 2.5 mg PO HS [facility] Last Admin: 02/20/18 21:56 Dose: 2.5 mg Sucralfate (Carafate Tab) 1 gm PO ACBHS [facility] Last Admin: 02/20/18 21:55 Dose: 1 gm - Labs Labs: 02/20/18 08:44 02/20/18 08:44 PT 13.8 SECONDS (9.7-12.2) H 02/16/18 19:41 INR 1.3 02/16/18 19:41 APTT 37 SECONDS (21-34) H 02/16/18 19:41 - Additional Findings Additional findings: - Constitutional Appears: Non-toxic, No Acute Distress - Head Exam Head Exam: ATRAUMATIC, NORMAL INSPECTION - Eye Exam Eye Exam: EOMI, PERRL - ENT Exam ENT Exam: Mucous Membranes Dry - Neck Exam Neck Exam: Full ROM - Respiratory Exam Respiratory Exam: Clear to Ausculation Bilateral. absent: Rhonchi, Wheezes, Respiratory Distress - Cardiovascular Exam Cardiovascular Exam: Regular Rhythm, +S1, +S2 - GI/Abdominal Exam GI & Abdominal Exam: Soft, Normal Bowel Sounds. (+) abdomen slightly distended absent: Firm, Guarding, Rigid, Tenderness in abdomen or suprapubic region - Extremities Exam Extremities Exam: Normal Capillary Refill, Normal Inspection. absent: Calf Tenderness, Pedal Edema, Tenderness - Back Exam Back Exam: NORMAL INSPECTION absent: vertebral tenderness - Neurological Exam Neurological Exam: Alert, Awake, CN II-XII Intact, Oriented x3. absent: Motor Sensory Deficit Neuro motor strength exam: Left Upper Extremity: 5, Right Upper Extremity: 5, Left Lower Extremity: 5, Right Lower Extremity: 5 - Psychiatric Exam Psychiatric exam: Normal Affect, Normal Mood - Skin Skin Exam: Dry, Normal Color, Warm. (+) scattered healing ecchymosis of the righ t and left upper extremities, nontender. Assessment and Plan - Assessment and Plan (Free Text) Assessment: This is a 78 year old female with HTN, seizure, depression admitted s/p fall and UTI Plan: Left Pubic Symphysis Fracture Ortho Consult: Dr. odell- no acute surgical intervention; continue PT XR Hip/Pelvis: Questionable nondisplaced fracture of left pubic symphysis CT Head w/o contrast (02/16): Chronic microvascular ischemic changes. 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 Deformity of the left nasal bone. CT abd/pevlis- no evidence of retroperitoneal hematoma, no acute fracture on CT, possible upper GI bleed with hemorrhage in small bowel loops Microcytic anemia, possible GI bleed GI consulted: Dr. Monaco- EGD rec- shows hiatal hernia, gastritis, and non bleeding gastric ulcer Hgb 11.1 Hemodynamically stable after blood transfusion CEA 6.4; Path results pending; full liquid diet, sucralfate tablets 1gm po qid for 8 weeks UTI Ciprofloxacin 250mg po bid [place] Afebrile, mild leukocytosis U cx positive for E coli CAD Crestor 2.5mg po hs [place] Tobacco Use Disorder Nicotine patch 7mg/24hr TD daily Educated patient on benefits of cessation PPx DVT: Lovenox 40mg SC daily (consider restarting in setting of EGD shows no acute bleed), SCDs GI: protonix 40 mg IVP q12
[2018-02-21 09:36] LABS: BASO # 0.1 K/uL (0.0-0.2); BASO % 0.7 % (0.0-2.0); EOS # 0.5 K/uL (0.0-0.7); EOS % 5.3 % (0.0-4.0); HEMOGLOBIN 10.9 g/dL (11.0-16.0); LYMPH # 1.7 K/uL (1.0-4.3); LYMPH % 17.6 % (20.0-40.0); MEAN CELL VOLUME 76.8 fL (81.0-99.0); MEAN CORPUSCULAR HEMOGLOBIN 25.3 pg (27.0-31.0); MEAN PLATELET VOLUME 8.2 fL (7.2-11.7); MONO # 1.2 K/uL (0.0-0.8); MONO % 12.9 % (0.0-10.0); NEUT % 63.5 % (50.0-75.0); NRBC % 0.1 % (0.0-2.0); RBC 4.33 Mil/uL (3.80-5.20); RED CELL DISTRIBUTION WIDTH 21.2 % (11.5-14.5); WHITE BLOOD COUNT 9.4 K/uL (4.8-10.8)
[2018-02-21] MEDS ORDERED: Peg-Electrolyte Oral Soln 4L (Golytely) PO ONE (10:00)
[2018-02-21 10:03] LABS: ALB/GLOB RATIO 0.8 (1.0-2.1); ALBUMIN 2.9 g/dL (3.5-5.0); ALT/SGPT 18 U/L (9-52); AST/SGOT 25 U/L (14-36); BLOOD UREA NITROGEN 6 mg/dL (7-17); CALCIUM 8.4 mg/dl (8.6-10.4); GFR NON-AFRICAN AMERICAN > 60
[2018-02-21] MEDS: Enoxaparin 40 mg Syringe SC SCH (10:03)
--- NOTE | 2018-02-21 11:05 | PN ---
DATE: 02/21/2018 LOCATION: 672, Bed A. SUBJECTIVE: This is a 78-year-old female seen and examined in rounds with the staff in the floor early this morning. Appeared to be awake, alert, oriented, but with lower abdominal crampy pain but no nausea or vomiting this morning and no reported chest pain, palpitation or significant complain of shortness of breath. The entire chart is reviewed including but not limited to the most recent lab and radiology study results, current and the previous medication list, current and the previous medical events and today's lab results still pending. However, the patient reported to have elevated CEA level of 6.5 with abnormal CAT scan of the abdomen and pelvis. PHYSICAL EXAMINATION GENERAL: A 78-year-old female. VITAL SIGNS: Afebrile with pulse of 72, respiratory 20-22, blood pressure 152/70. HEENT: Showed pale dry oral mucous membrane. Nonicteric sclerae. LUNGS: Few scattered crepitation. Decreased air entry at bases. HEART: Positive S1 and S2. ABDOMEN: Soft with mild generalized tenderness. No mass or organomegaly. No rebound tenderness or guarding. EXTREMITIES: Without significant clubbing, cyanosis or edema. NEUROLOGIC: No reported new neurological deficits, sensory or motor. It has to be mentioned that the patient is still having suprapubic tenderness and pain. IMPRESSION: 1. Peptic ulcer disease with gastric ulcer. 2. Duodenitis. 3. Severe anemia with elevated CEA level to rule out lower gastrointestinal tract occult malignancy versus source of blood loss. 4. Electrolyte imbalance. 5. Malnutrition with hypoalbuminemia. 6. Post fall leading to the pelvic bone fracture. 7. Known history of depression, hypertension, seizure disorder with status post cholecystectomy. SUGGESTIONS: 1. Continue current management. 2. The patient is scheduled for colonoscopy at a.m. after adequate preparation. Darrell Gunter MD
[2018-02-21] MEDS ORDERED: Bisacodyl 5mg EC Tab PO ONE (17:00)
[2018-02-21] MEDS: Rosuvastatin Calcium 2.5 mg Tab PO SCH (23:14)
[2018-02-22 06:36] LABS: BASO # 0.1 K/uL (0.0-0.2); BASO % 1.4 % (0.0-2.0); EOS # 0.5 K/uL (0.0-0.7); EOS % 5.7 % (0.0-4.0); HEMOGLOBIN 10.5 g/dL (11.0-16.0); LYMPH # 2.2 K/uL (1.0-4.3); MEAN CORPUSCULAR HEMOGLOBIN 24.9 pg (27.0-31.0); MEAN CORPUSCULAR HGB CONC 32.3 g/dL (33.0-37.0); MONO # 1.3 K/uL (0.0-0.8); MONO % 14.7 % (0.0-10.0); NEUT # 4.7 K/uL (1.8-7.0); NEUT % 53.2 % (50.0-75.0); NRBC % 0.1 % (0.0-2.0); RBC 4.22 Mil/uL (3.80-5.20); RED CELL DISTRIBUTION WIDTH 21.5 % (11.5-14.5); WHITE BLOOD COUNT 8.8 K/uL (4.8-10.8)
[2018-02-22 06:40] LABS: INR 1.3; PROTHROMBIN TIME 13.9 SECONDS (9.7-12.2)
[2018-02-22 06:55] LABS: ALB/GLOB RATIO 0.9 (1.0-2.1); ALBUMIN 2.8 g/dL (3.5-5.0); ALT/SGPT 18 U/L (9-52); AST/SGOT 47 U/L (14-36); BLOOD UREA NITROGEN 6 mg/dL (7-17); CALCIUM 8.2 mg/dl (8.6-10.4); GFR NON-AFRICAN AMERICAN > 60
[2018-02-22] MEDS ORDERED: Magnesium Sulfate 1 gm in D5W 1 GM/100 ML BAG IVPB ONE ×2 (08:38→16:00)
--- NOTE | 2018-02-22 08:43 | CP.PCM.PN ---
Subjective - Date & Time of Evaluation Date of Evaluation: 02/22/18 Time of Evaluation: 08:39 - Subjective Subjective: PGY-1 Medicine Progress note for Dr. Galeas Patient seen and examined at bedside. Patient offers no acute complaints and denies fevers, chills, headache, dizziness, weakness, chest pain, sob, n/v, constipation or diarrhea, hematochezia, hematuria, dysuria, or any other bleeding. Pt will go for colonoscopy this am by Dr. Monaco. Objective - Vital Signs/Intake and Output Vital Signs (last 24 hours): Temp Pulse Resp BP Pulse Ox 97.8 F 64 18 169/68 H 100 02/22/18 07:45 02/22/18 07:45 02/22/18 07:45 02/22/18 07:45 02/22/18 07:45 - Medications Medications: Current Medications Ciprofloxacin (Cipro) 250 mg PO BID [facility]; Protocol Last Admin: 02/21/18 19:18 Dose: 250 mg Enoxaparin Sodium (Lovenox) 40 mg SC DAILY [facility] Last Admin: 02/21/18 10:03 Dose: 40 mg Magnesium Sulfate/Dextrose (Magnesium Sulfate 1 Gm/100 Ml D5w) 1 gm in 100 mls @ 200 mls/hr IVPB ONCE ONE Stop: 02/22/18 09:07 Metoclopramide HCl (Reglan) 5 mg IVP Q6H [facility] Last Admin: 02/22/18 01:27 Dose: 5 mg Nicotine (Nicoderm Cq) 1 patch TD DAILY [facility] Last Admin: 02/21/18 10:02 Dose: 1 patch Pantoprazole Sodium (Protonix Inj) 40 mg IVP DAILY [facility] Last Admin: 02/21/18 10:02 Dose: 40 mg Rosuvastatin Calcium (Crestor) 2.5 mg PO HS [facility] Last Admin: 02/21/18 23:14 Dose: Not Given Sucralfate (Carafate Tab) 1 gm PO ACBHS [facility] Last Admin: 02/21/18 22:14 Dose: Not Given - Labs Labs: 02/22/18 06:27 02/22/18 06:27 PT 13.9 SECONDS (9.7-12.2) H 02/22/18 06:27 INR 1.3 02/22/18 06:27 APTT 32 SECONDS (21-34) 02/22/18 06:27 - Additional Findings Additional findings: - Constitutional Appears: Non-toxic, No Acute Distress - Head Exam Head Exam: ATRAUMATIC, NORMAL INSPECTION - Eye Exam Eye Exam: EOMI, PERRL. Conjunctival pallor - ENT Exam ENT Exam: Mucous Membranes Dry - Neck Exam Neck Exam: Full ROM - Respiratory Exam Respiratory Exam: Clear to Ausculation Bilateral. absent: Rhonchi, Wheezes, Respiratory Distress - Cardiovascular Exam Cardiovascular Exam: Regular Rhythm, +S1, +S2 - GI/Abdominal Exam GI & Abdominal Exam: Soft, Normal Bowel Sounds. absent: Firm, Distension, Guarding, Rigid, Tenderness in abdomen or suprapubic region - Extremities Exam Extremities Exam: Normal Capillary Refill, Normal Inspection. absent: Calf Tenderness, Pedal Edema, Tenderness - Back Exam Back Exam: NORMAL INSPECTION absent: vertebral tenderness - Neurological Exam Neurological Exam: Alert, Awake, Oriented x3. absent: Motor Sensory Deficit Neuro motor strength exam: Left Upper Extremity: 5, Right Upper Extremity: 5, Left Lower Extremity: 5, Right Lower Extremity: 5 - Psychiatric Exam Psychiatric exam: Normal Affect, Normal Mood - Skin Skin Exam: Dry, Normal Color, Warm. (+) scattered healing ecchymosis of the right and left upper extremities, nontender. Good capillary refill. Assessment and Plan - Assessment and Plan (Free Text) Assessment: This is a 78 year old female with HTN, seizure, depression admitted s/p fall and UTI Plan: Left Pubic Symphysis Fracture Ortho Consult: Dr. odell- no acute surgical intervention; continue PT XR Hip/Pelvis: Questionable nondisplaced fracture of left pubic symphysis CT Head w/o contrast (02/16): Chronic microvascular ischemic changes. 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 Deformity of the left nasal bone. CT abd/pevlis- no evidence of retroperitoneal hematoma, no acute fracture on CT, possible upper GI bleed with hemorrhage in small bowel loops Microcytic anemia, possible GI bleed GI consulted: Dr. Monaco- EGD rec- shows hiatal hernia, gastritis, and non bleeding gastric ulcer Colonoscopy to be done today Hgb 10.5 Hemodynamically stable after blood transfusion CEA 6.4; Path results pending; full liquid diet, sucralfate tablets 1gm po qid for 8 weeks UTI Ciprofloxacin 250mg po bid [place] Afebrile, mild leukocytosis U cx positive for E coli sensitive to cipro CAD Crestor 2.5mg po hs [place] Tobacco Use Disorder Nicotine patch 7mg/24hr TD daily Educated patient on benefits of cessation PPx DVT: Lovenox 40mg SC daily (consider restarting in setting of EGD shows no acute bleed), SCDs GI: protonix 40 mg IVP q12 Case discussed with Dr. Galeas, all medical management as per Dr. Gudelia Guerin PGY-1
--- NOTE | 2018-02-22 09:03 | CON ---
DATE: 02/17/2018 I was called for GI consultation by the admitting medical team. The patient is seen and fully examined on 02/17/2018. The entire chart is reviewed, including, but not limited to most recent lab and radiology study results, current and the previous medication list, current and the previous medical events. Case discussed with the staff at length at the time of my GI consultation. HISTORY OF PRESENT ILLNESS: This is a 78-year-old female who was admitted to the hospital from the emergency room with a recent episode of a fall in her apartment about 4-5 years ago with a complaint of generalized weakness and malaise, was not able to move around. The patient has a complaint of severe pelvic pain, nausea, dyspepsia with loss of appetite. No recent bowel movement according to her statement. No reported head injury, loss of consciousness, or evidence of active bleeding. PAST MEDICAL HISTORY: Including mainly, but not limited to hypertension, depression, seizure disorder, and peptic ulcer disease. PAST SURGICAL HISTORY: Status post cholecystectomy. FAMILY HISTORY: Unknown. SOCIAL HISTORY: No recent known history of cigarette smoking or alcohol intake. CURRENT MEDICATIONS: Post admission medication lists were reviewed. ALLERGIES TO MEDICATIONS: UNKNOWN. LABORATORY DATA: Initial blood workup post admission showed hemoglobin is low with 9.7, hematocrit 32 with thrombocytosis and white blood cells of 20.8. Blood glucose level 113. CO2 content of 21, indicative of metabolic acidosis. Radiology study result showed evidence of pelvic fracture. PHYSICAL EXAMINATION: GENERAL: A 78-year-old female, afebrile. VITAL SIGNS: Pulse of 106, respiratory rate 20-22, blood pressure of 156/80. HEENT: Showed pale, dry oral mucous membrane. Nonicteric sclerae. LUNGS: Few scattered crepitation. Decreased air entry at bases. LYMPH NODES: No lymphadenitis or lymphadenopathy. HEART: Positive S1 and S2 with increased rate. ABDOMEN: Soft with slight to moderate generalized tenderness, mainly in the left side of the abdomen. No mass or organomegaly could be appreciated. RECTAL: Deferred. The patient refused. EXTREMITIES: With lower extremity mild edematous changes. No clubbing or cyanosis. The patient has difficulty of moving her lower extremities, believed to be secondary to fractured pelvic bone. NEUROLOGIC: No reported new neurological deficits, sensory or motor. It has to be mentioned that there was significant drop of hemoglobin and hematocrit post admission of which is the possibility of GI blood loss versus intraperitoneal bleeding with risk. IMPRESSION: 1. Anemia. 2. Significant drop of hemoglobin and hematocrit post admission. 3. Post fall-inducing pelvic bones fracture. 4. Past medical history including hypertension, depression with seizure disorder. SUGGESTION: 1. Antireflux measure. 2. Proton pump inhibitors. 3. A stat abdominal and pelvic CAT scan to rule out possible intraperitoneal bleed and possible fall inducing subsequent and sudden drop of hemoglobin and hematocrit. 4. Blood transfusion to keep hemoglobin around 10 g percent. 5. Endoscopic evaluation of the upper GI tract when the patient is more stable clinically. 6. Cancer markers. 7. Serum lipase and amylase level. Further recommendation to follow. Thank you for letting me to participate in your patient's case management. Darrell Gunter MD
[2018-02-22] MEDS: Enoxaparin 40 mg Syringe SC SCH (10:00)
[2018-02-22] MEDS ORDERED: Lidocaine Hydrochloride 5 ML INJ ONE (10:27)
[2018-02-22] MEDS ORDERED: Propofol 10 mg/ml Inj (20 ML) ONE ×2 (10:27→10:52)
--- NOTE | 2018-02-22 12:49 | CP.PCM.PN ---
Subjective - Date & Time of Evaluation Date of Evaluation: 02/22/18 Time of Evaluation: 12:47 - Subjective Subjective: Orthopedic follow up Dr. Martinez Patient just back from colonoscopy. Denies any hip/groin/back pain, and says she did well with PT. Denies CP/SOb/dizziness/numbness/tinglign Review of Systems - Review of Systems All systems: reviewed and no additional remarkable complaints except - Musculoskeletal Musculoskeletal: As Par HPI Objective - Vital Signs/Intake and Output Vital Signs (last 24 hours): Temp Pulse Resp BP Pulse Ox 97.1 F L 71 15 149/59 L 100 02/22/18 11:05 02/22/18 11:35 02/22/18 11:35 02/22/18 11:35 02/22/18 11:35 Intake and Output: 02/22/18 02/22/18 06:59 18:59 Intake Total 300 Balance 300 - Medications Medications: Current Medications Ciprofloxacin (Cipro) 250 mg PO BID COUNTS INCLUDE 234 BEDS AT THE [facility]; Protocol Last Admin: 02/22/18 10:00 Dose: Not Given Enoxaparin Sodium (Lovenox) 40 mg SC DAILY COUNTS INCLUDE 234 BEDS AT THE [facility] Last Admin: 02/22/18 10:00 Dose: Not Given Metoclopramide HCl (Reglan) 5 mg IVP Q6H COUNTS INCLUDE 234 BEDS AT THE [facility] Last Admin: 02/22/18 01:27 Dose: 5 mg Nicotine (Nicoderm Cq) 1 patch TD DAILY COUNTS INCLUDE 234 BEDS AT THE [facility] Last Admin: 02/22/18 10:00 Dose: Not Given Pantoprazole Sodium (Protonix Inj) 40 mg IVP DAILY COUNTS INCLUDE 234 BEDS AT THE [facility] Last Admin: 02/22/18 10:00 Dose: Not Given Rosuvastatin Calcium (Crestor) 2.5 mg PO HS COUNTS INCLUDE 234 BEDS AT THE [facility] Last Admin: 02/21/18 23:14 Dose: Not Given Sucralfate (Carafate Tab) 1 gm PO ACBHS COUNTS INCLUDE 234 BEDS AT THE [facility] Last Admin: 02/22/18 07:30 Dose: Not Given - Labs Labs: 02/22/18 06:27 02/22/18 06:27 PT 13.9 SECONDS (9.7-12.2) H 02/22/18 06:27 INR 1.3 02/22/18 06:27 APTT 32 SECONDS (21-34) 02/22/18 06:27 - Constitutional Appears: Well, No Acute Distress - Head Exam Head Exam: ATRAUMATIC - Neck Exam Neck Exam: Full ROM, Normal Inspection - Respiratory Exam Respiratory Exam: NORMAL BREATHING PATTERN - Cardiovascular Exam Additional comments: +DP/PT pulses - Extremities Exam Additional comments: no tenderness to pubis today calves soft NT neg homans - Neurological Exam Neurological Exam: Alert, Awake, Oriented x3 Neuro motor strength exam: Left Lower Extremity: 5 - Psychiatric Exam Psychiatric exam: Normal Affect, Normal Mood - Skin Skin Exam: Dry, Intact, Normal Color, Warm Assessment and Plan (1) Fracture of left pubis Assessment & Plan: ? fracture, not clearly evident on CT scan non displaced, non operative, no treatment indicated if this is true fracture treatment is progressive mobility, will start WBAT LLE VTE proph SCDs orthopedically stable, no further imaging warranted at this time, patient is not complaining of any pain tolerating PT well, no pain in groin/hip/back with ambulation d/w Dr. Martinez, agrees with above will sign off, reconsult prn Status: Acute
--- NOTE | 2018-02-22 15:51 | CP.PCM.DIS ---
Provider - Provider Date of Admission: 02/16/18 23:23 Attending physician: Ethan Galeas Jr, MD Time Spent in preparation of Discharge (in minutes): 35 Hospital Course - Lab Results Lab Results: Micro Results 02/16/18 18:40 Blood Blood Culture - Final NO GROWTH AFTER 5 DAYS 02/16/18 18:40 Blood Gram Stain - Final TEST NOT PERFORMED 02/16/18 19:10 Blood Blood Culture - Final NO GROWTH AFTER 5 DAYS 02/16/18 19:10 Blood Gram Stain - Final TEST NOT PERFORMED 02/16/18 21:36 Urine Urine Culture - Final Escherichia Coli Most Recent Lab Values WBC 8.8 K/uL (4.8-10.8) 02/22/18 06:27 RBC 4.22 Mil/uL (3.80-5.20) 02/22/18 06:27 Hgb 10.5 g/dL (11.0-16.0) L 02/22/18 06:27 Hct 32.5 % (34.0-47.0) L 02/22/18 06: MCV 77.0 fL (81.0-99.0) L 02/22/18 06:27 MCH 24.9 pg (27.0-31.0) L 02/22/18 06:27 MCHC 32.3 g/dL (33.0-37.0) L 02/22/18 06:27 RDW 21.5 % (11.5-14.5) H 02/22/18 06:27 Plt Count 475 K/uL (130-400) H 02/22/18 06:27 MPV 8.0 fL (7.2-11.7) 02/22/18 06:27 Neut % (Auto) 53.2 % (50.0-75.0) 02/22/18 06: Lymph % (Auto) 25.0 % (20.0-40.0) 02/22/18 06:27 Sandoval % (Auto) 14.7 % (0.0-10.0) H 02/22/18 06:27 Eos % (Auto) 5.7 % (0.0-4.0) H 02/22/18 06:27 Baso % (Auto) 1.4 % (0.0-2.0) 02/22/18 06:27 Neut # (Auto) 4.7 K/uL (1.8-7.0) 02/22/18 06:27 Lymph # (Auto) 2.2 K/uL (1.0-4.3) 02/22/18 06:27 Sandoval # (Auto) 1.3 K/uL (0.0-0.8) H 02/22/18 06:27 Eos # (Auto) 0.5 K/uL (0.0-0.7) 02/22/18 06:27 Baso # (Auto) 0.1 K/uL (0.0-0.2) 02/22/18 06:27 Neutrophils % (Manual) 84 % (50-75) H 02/16/18 19:41 Lymphocytes % (Manual) 8 % (20-40) L 02/16/18 19:41 Monocytes % (Manual) 8 % (0-10) 02/16/18 19:41 Platelet Estimate Increased (NORMAL) H 02/16/18 19:41 Hypochromasia (manual) Slight 02/16/18 19:41 Poikilocytosis (manual Slight 02/16/18 19:41 Anisocytosis (manual) Slight 02/16/18 19:41 Microcytosis (manual) Slight 02/16/18 19:41 PT 13.9 SECONDS (9.7-12.2) H 02/22/18 06:27 INR 1.3 02/22/18 06:27 APTT 32 SECONDS (21-34) 02/22/18 06:27 pO2 19 mm/Hg (30-55) L 02/17/18 00:31 VBG pH 7.30 (7.32-7.43) L 02/17/18 00:31 VBG pCO2 41 mmHg (40-60) 02/17/18 00:31 VBG HCO3 18.3 mmol/L 02/17/18 00:31 VBG Total CO2 21.5 mmol/L (22-28) L 02/17/18 00:31 VBG O2 Sat (Calc) 19.0 % (40-65) L 02/17/18 00:31 VBG Base Excess -5.9 mmol/L (0.0-2.0) L 02/17/18 00:31 VBG Potassium 3.9 mmol/L (3.6-5.2) 02/17/18 00:31 Sodium 141.0 mmol/l (132-148) 02/17/18 00:31 Chloride 104.0 mmol/L (98-107) 02/17/18 00:31 Glucose 82 mg/dl (65-105) 02/17/18 00:31 Lactate 1.2 mmol/L (0.7-2.1) 02/17/18 00:31 Sodium 138 mmol/L (132-148) 02/22/18 06:27 Potassium 4.5 mmol/L (3.6-5.2) 02/22/18 06:27 Chloride 104 mmol/L (98-107) 02/22/18 06:27 Carbon Dioxide 31 mmol/L (22-30) H 02/22/18 06:27 Anion Gap 7 (10-20) L 02/22/18 06:27 BUN 6 mg/dL (7-17) L 02/22/18 06:27 Creatinine 0.8 mg/dL (0.7-1.2) 02/22/18 06:27 Est GFR ( Amer) > 60 02/22/18 06:27 Est GFR (Non-Af Amer) > 60 02/22/18 06:27 POC Glucose (mg/dL) 88 mg/dL (65-110) 02/20/18 06:42 Random Glucose 92 mg/dL (65-105) 02/22/18 06:27 Calcium 8.2 mg/dl (8.6-10.4) L 02/22/18 06:27 Phosphorus 3.4 mg/dL (2.5-4.5) 02/22/18 06:27 Magnesium 1.5 mg/dL (1.6-2.3) L 02/22/18 06:27 Iron < 10 ug/dL (37-170) L 02/17/18 14:06 TIBC 253 ug/dL (250-450) 02/17/18 14:06 % Saturation < 4 (20-55) L 02/17/18 14:06 Total Bilirubin 0.2 mg/dL (0.2-1.3) 02/22/18 06:27 AST 47 U/L (14-36) H D 02/22/18 06:27 ALT 18 U/L (9-52) 02/22/18 06:27 Alkaline Phosphatase 74 U/L (38-126) 02/22/18 06:27 Total Creatine Kinase 90 U/L (30-135) 02/16/18 19:41 CK-MB (Mass) 5.05 ng/mL (0.0-3.38) H 02/16/18 19:41 Total Protein 6.0 g/dL (6.3-8.3) L 02/22/18 06:27 Albumin 2.8 g/dL (3.5-5.0) L 02/22/18 06:27 Globulin 3.2 gm/dL (2.2-3.9) 02/22/18 06:27 Albumin/Globulin Ratio 0.9 (1.0-2.1) L 02/22/18 06:27 Triglycerides 125 mg/dL (0-149) 02/17/18 14:06 Cholesterol 107 mg/dL (0-199) 02/17/18 14:06 LDL Cholesterol Direct 51 mg/dL (0-129) 02/17/18 14:06 HDL Cholesterol 41 mg/dL (30-70) 02/17/18 14:06 Carcinoembryonic Ag 6.5 ng/mL (0-3.0) H 02/19/18 14:19 CA 125 Antigen 19.6 U/mL (0-35) 02/19/18 14:19 Vitamin B12 511 pg/mL (239-931) 02/17/18 11:00 Folate 18.1 ng/mL 02/17/18 11:00 Venous Blood Potassium 3.9 mmol/L (3.6-5.2) 02/17/18 00:31 Urine Color Yellow (YELLOW) 02/16/18 21:36 Urine Clarity Hazy (Clear) 02/16/18 21:36 Urine pH 6.0 (5.0-8.0) 02/16/18 21:36 Ur Specific [place] 1.012 (1.003-1.030) 02/16/18 21:36 Urine Protein 1+ mg/dL (NEGATIVE) H 02/16/18 21:36 Urine Glucose (UA) Normal mg/dL (Normal) 02/16/18 21:36 Urine Ketones 2+ mg/dL (NEGATIVE) H 02/16/18 21:36 Urine Blood 2+ (NEGATIVE) H 02/16/18 21:36 Urine Nitrate Positive (NEGATIVE) H 02/16/18 21:36 Urine Bilirubin Negative (NEGATIVE) 02/16/18 21:36 Urine Urobilinogen Normal mg/dL (0.2-1.0) 02/16/18 21:36 Ur Leukocyte Esterase 1+ Marisol/uL (Negative) H 02/16/18 21:36 Urine WBC (Auto) 29 /hpf (0-5) H 02/16/18 21:36 Urine RBC (Auto) 12 /hpf (0-3) H 02/16/18 21:36 Ur Squamous Epith Cells 8 /hpf (0-5) H 02/16/18 21:36 Urine Bacteria Occ (<OCC) H 02/16/18 21:36 Hyaline Casts 6-10 /lpf (0-2) H 02/16/18 21:36 Stool Occult Blood Negative (NEGATIVE) 02/17/18 14:29 Salicylates < 1.0 mg/dL 1 02/16/18 23:52 Acetaminophen < 10.0 ug/mL (10.0-30.0) L 02/16/18 23:52 Blood Type O NEGATIVE 02/17/18 14:05 Antibody Screen Negative 02/17/18 14:05 - Hospital Course Hospital Course: On Admission: Ms. Duron is a 78 year old female PMH hypertension, depression, seizure, hyperlipidemia presents to [facility] s/p fall 5 days ago. Per patient, her legs gave out and she fell to the floor on her left hip. She did not hit her head nor have loss of consciousness. However, she was unable to regain control of her legs. She spent the subsequent 5 days crawling on the floor to get to the phone and call 911. During that time, she did not eat. She was both incontinent and allowed herself to urinate since she was unable to get to a toilet. She denies having a BM during that time. Per EMS, her home was [facility], and the patient admits that she does not believe she can live alone any longer. Denies chest pain, abdominal pain, hip pain, shortness of breath, headache. Admits numbness and tingling at her feet. Patient states she has chronic back pain that has only worsened after the fall. She tells nursing staff that she takes Percocet, however is unable to remember how many times a day she takes it. Hospital course: Pt was under the care of Dr. Galeas from 02/17-02/22. She was admitted to [facility] due to history of paroxysmal afib. She was noted to have microcytic anemia at 9.7, leukocytosis (with UTI being source of infection). Head CT showed chronic changes. EKG showed sinus tachycardia with PVCs. CXR was normal. X-ray of the hip showed possibility of fracture of the left pubic symphysis. CT abd/pelv- no evidence of retroperitoneal hematoma, no acute fracture on CT, possible upper GI bleed with hemorrhage in small bowel loops. Orthopedic surgery, Dr. Martinez, was consulted for fracture; no indication for intervention. On 02/18, Hgb was noted to be 7.5, although pt received 3 L of fluids. GI, Dr. Monaco, was consulted due to risk of bleeding due to drop in Hgb, history of alcohol use. She was transfused 2 units of packed red blood cells, with appropriate response. EGD by Dr. Monaco showed shows small hiatal hernia. Non-bleeding gastric ulcer with no stigmata of bleeding. Gastritis. Colonoscopy performed by Dr. Monaco showed 4mm poylp which was removed, non-bleeding internal hemorrhoids, congested mucosa in the descending colon. Pt not recommended to have colonoscopy repeated due to age. Pt's urinary symptoms improved during hospital stay. On discharge, patient offers no acute complaints and denies fevers, chills, headache, dizziness, weakness, chest pain, sob, n/v, constipation or diarrhea, hematochezia, hematuria, dysuria, or any other bleeding. Images: CXR (02/16): no focal infiltrate or effusion (see full report) XR Hip/Pelvis: Questionable nondisplaced fracture of left pubic symphysis. CT Head w/o contrast (02/16): Chronic microvascular ischemic changes. 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 Deformity of the left nasal bone. CT abd/pelv- no evidence of retroperitoneal hematoma, no acute fracture on CT, possible upper GI bleed with hemorrhage in small bowel loops. This is a summary of the hospital course, please see chart for full details. Discharge Exam - Additional Findings Additional findings: - Constitutional Appears: Non-toxic, No Acute Distress - Head Exam Head Exam: ATRAUMATIC, NORMAL INSPECTION - Eye Exam Eye Exam: EOMI, PERRL - ENT Exam ENT Exam: Mucous Membranes Moist - Neck Exam Neck Exam: Full ROM - Respiratory Exam Respiratory Exam: Clear to Ausculation Bilateral. absent: Rhonchi, Wheezes, Respiratory Distress - Cardiovascular Exam Cardiovascular Exam: Regular Rhythm, +S1, +S2 - GI/Abdominal Exam GI & Abdominal Exam: Soft, Normal Bowel Sounds. (+) abdomen slightly distended absent: Firm, Guarding, Rigid, Tenderness in abdomen or suprapubic region - Extremities Exam Extremities Exam: Normal Capillary Refill, Normal Inspection. absent: Calf Tenderness, Pedal Edema, Tenderness - Back Exam Back Exam: NORMAL INSPECTION absent: vertebral tenderness - Neurological Exam Neurological Exam: Alert, Awake, CN II-XII Intact, Oriented x3. absent: Motor Sensory Deficit Neuro motor strength exam: Left Upper Extremity: 5, Right Upper Extremity: 5, Left Lower Extremity: 5, Right Lower Extremity: 5 - Psychiatric Exam Psychiatric exam: Normal Affect, Normal Mood - Skin Skin Exam: Dry, Normal Color, Warm. (+) scattered healing ecchymosis of the right and left upper extremities, nontender. Discharge Plan - Follow Up Plan Condition: GOOD Disposition: TRANSF TO SNF Instructions: Quitting Smoking for Older Adults, Urinary Tract Infection, Adult (DC), Quitting Smoking, Pelvic Fracture (DC) Additional Instructions: Pt is medically stable to be discharged to [facility]. Pt is to continue all home medications as previously prescribed. Pt should continue to take Ciprofloxacin 250 mg PO BID for a total of 7 days (to be completed 02/25/18). Pt should continue Sucralfate tabs 1 gm PO QID for 8 weeks (to be completed 02/14/18) Pt instructed to follow up with PMD or Dr. Galeas within 2 weeks of discharge. Pt should follow up with Dr. Monaco GI, in 5 weeks. Pt should have repeat upper endoscopy in 10 weeks for surveillance based on pathology results. No indication to repeat colonoscopy due to age. If symptoms persist, pt should return to the nearest Emergency Department for evaluation. Instructions explained to the pt, who understands and agrees with discharge plan. Referrals: Darrell Monaco [Staff Provider] - Ethan Galeas Jr., MD [Medical Doctor] -
[2018-02-22 17:39] VITALS: BP 159/74; RESP 20; TEMP 97.9; O2SAT 96
[2018-02-22] MEDS ORDERED: Influenza Vaccine 60 MCG/0.5 ML SYR (3 yr & up) IM ONE (18:39)
[2018-02-22] MEDS ORDERED: Pneumococcal 23-Valent Vaccine IM ONE (18:40)
[2018-02-22 19:49] VITALS: PULSE 102
== END 2018-02-22 21:01 | DRG 536 ==
LOC: C.ER 18:23 → C.9E 23:23 → C.6T 02-17 00:19
PROVIDERS: ADMIT Internal Medicine; ATTEND Internal Medicine
PROC: 30233N1 Transfusion of Nonautologous Red Blood Cells into Peripheral Vein, Percutaneous Approach (ICD-10-PCS; 2018-02-17)
PROC: 0DB68ZX Excision of Stomach, Via Natural or Artificial Opening Endoscopic, Diagnostic (ICD-10-PCS; principal; 2018-02-19 10:05)
PROC: 0DBM8ZX Excision of Descending Colon, Via Natural or Artificial Opening Endoscopic, Diagnostic (ICD-10-PCS; 2018-02-22)
DX: S32.592A Other specified fracture of left pubis, initial encounter for closed fracture (principal); N39.0 Urinary tract infection, site not specified; E46 Unspecified protein-calorie malnutrition; D50.9 Iron deficiency anemia, unspecified; E87.6 Hypokalemia; E86.0 Dehydration; K25.9 Gastric ulcer, unspecified as acute or chronic, without hemorrhage or perforation; D12.4 Benign neoplasm of descending colon; I48.0 Paroxysmal atrial fibrillation; I49.3 Ventricular premature depolarization; I10 Essential (primary) hypertension; E83.51 Hypocalcemia; K29.60 Other gastritis without bleeding; E77.8 Other disorders of glycoprotein metabolism; K44.9 Diaphragmatic hernia without obstruction or gangrene; K29.80 Duodenitis without bleeding; R00.0 Tachycardia, unspecified; K64.0 First degree hemorrhoids; K58.9 Irritable bowel syndrome, unspecified; G40.909 Epilepsy, unspecified, not intractable, without status epilepticus; E78.5 Hyperlipidemia, unspecified; F32.9 Major depressive disorder, single episode, unspecified; M54.9 Dorsalgia, unspecified; G89.29 Other chronic pain; F17.210 Nicotine dependence, cigarettes, uncomplicated; W18.30XA Fall on same level, unspecified, initial encounter; Y92.002 Bathroom of unspecified non-institutional (private) residence as the place of occurrence of the external cause; Z86.73 Personal history of transient ischemic attack (TIA), and cerebral infarction without residual deficits; Z87.11 Personal history of peptic ulcer disease; Z90.49 Acquired absence of other specified parts of digestive tract; Z82.3 Family history of stroke; Z81.8 Family history of other mental and behavioral disorders